=== PATIENT | male | born 1945 | race Caucasian/White ===

== ENCOUNTER 2022-12-29 11:42 | Outpatient (OUT) | payer MEDICARE, SELFPAY ==
[2022-12-29 12:18] LABS: Estimated Average Glucose 140 mg/dL; Glycohemoglobin A1C 6.5 % (4.5-6.2)
== END 2022-12-29 11:43 ==
LOC: LAB 11:46
PROVIDERS: PCP Family Medicine; Visit Provider Family Medicine
DX: E11.65 Type 2 diabetes mellitus with hyperglycemia (principal)
CPT/HCPCS: 36415; 83036

== ENCOUNTER 2023-06-29 10:31 | Outpatient (OUT) | payer MEDICARE, SELFPAY ==
[2023-06-29 11:16] LABS: Basophils Absolute Auto 0.1 10^3/uL (0.0-0.1); Basophils Percent Auto 1.6 % (0.2-2.0); Eosinophils Absolute Auto 0.1 10^3/uL (0.0-0.7); Eosinophils Percent Auto 2.5 % (0.9-7.0); Hematocrit 47.1 % (42.0-54.0); Hemoglobin 15.1 g/dL (14.0-18.0); Immature Granulocytes Abs Auto 0.01 10^3/uL (0.00-0.03); Immature Granulocytes Pct Auto 0.2 % (0.0-0.5); Lymphocytes Absolute Auto 1.5 10^3/uL (1.2-3.8); Lymphocytes Percent Auto 34.6 % (20.5-60.0); Mean Corpuscular HGB Conc 32.1 g/dL (29.9-35.2); Mean Corpuscular Hemoglobin 30.3 pg (25.9-34.0); Mean Corpuscular Volume 94.6 fL (80.0-94.0); Mean Platelet Volume 8.9 fL (9.5-13.5); Monocytes Absolute Auto 0.5 10^3/uL (0.3-0.8); Monocytes Percent Auto 11.3 % (1.7-12.0); Neutrophils Absolute Auto 2.2 10^3/uL (1.4-6.5); Neutrophils Percent Auto 49.8 % (43.0-75.0); Platelet Count 175 10^3/uL (150-450); Red Blood Count 4.98 10^6/uL (4.70-6.10); Red Cell Distribution Width 14.1 % (11.0-15.0); White Blood Count 4.4 10^3/uL (4.0-11.0)
[2023-06-29 11:31] LABS: Estimated Average Glucose 157 mg/dL; Glycohemoglobin A1C 7.1 % (4.5-6.2)
[2023-06-29 11:31] LABS: Microalbumin Urine Random <1.3 mg/dL (<=30.0)
[2023-06-29 12:04] LABS: Alanine Aminotransferase 29 U/L (16-63); Albumin Globulin Ratio 0.8; Albumin Level 3.6 g/dL (3.4-5.0); Alkaline Phosphatase 79 U/L (46-116); Anion Gap 11.4; Aspartate Amino Transferase 13 U/L (15-37); BUN Creatinine Ratio 16.2; Bilirubin Direct 0.1 mg/dL (0.0-0.2); Bilirubin Total 0.5 mg/dL (0.2-1.0); Calcium 9.3 mg/dL (8.5-10.1); Carbon Dioxide 31.4 mmol/L (21.0-32.0); Chloride 104 mmol/L (98-107); Chol HDL Ratio 3.7; Cholesterol 172 mg/dL (<=200); Estimated GFR (African America 58 (>=60); Estimated GFR (Non-African Ame 48 (>=60); Globulin 4.3 g/dL; Glucose 187 mg/dL (74-106); HDL Cholesterol 47 mg/dL (40-60); Potassium 3.8 mmol/L (3.5-5.1); Sodium 143 mmol/L (136-145); Total Protein 7.9 g/dL (6.4-8.2); Triglycerides 159 mg/dL (<=150); VLDL CHOLESTEROL 31.8 mg/dL
[2023-06-29 12:20] LABS: Prostate Specific Antigen Dx 2.06 ng/mL (<=4.00)
== END 2023-06-29 10:32 | disposition home or self-care (01) ==
PROVIDERS: PCP Family Medicine; Visit Provider Family Medicine
DX: E11.65 Type 2 diabetes mellitus with hyperglycemia (principal); Z79.899 Other long term (current) drug therapy; E78.5 Hyperlipidemia, unspecified; Z12.5 Encounter for screening for malignant neoplasm of prostate
CPT/HCPCS: 36415; 80048; 80061; 80076; 82043; 83036; 84153; 85025

== ENCOUNTER 2023-12-18 10:14 | Outpatient (OUT) | payer MEDICARE, SELFPAY ==
--- OUTSIDE RECORDS SUMMARY | 2023-12-18 10:27 | XMS_ITS | CCD ---
Author Organization [facility] Care Team Providers Care Stacker Attendant Name Role Phone DR DANTE ELDER Admitting Unavailable NADERER, DR DANTE Ogden Attending Unavailable NADERER, DR DANTE Ogden Primary Care Unavailable NADERER, DR DANTE Ogden Consulting Unavailable NADERER, DR DANTE Ogden Admitting Unavailable NADERER, DR DANTE Ogden Attending Unavailable NADERER, DR DANTE Ogden Primary Care Unavailable NADERER, DR DANTE Ogden Consulting Unavailable NADIRENE, DR DANTE Ogden Admitting Unavailable NADEREEthel, DR DANTE Ogden Attending Unavailable NADERER, DR DANTE Ogden Primary Care Unavailable NADERER, DR DANTE Ogden Consulting Unavailable Dante Elder MD Primary Care Provider ERIC DONALDSON Attending Unavailable ERIC DONALDSON Attending Unavailable JAEL, DANTE Attending Unavailable DARREN QUINONES Attending Unavailable NADIRENE, DANTE Attending Unavailable Medications Current Medications Medication Drug Class(es) Dates Sig (Normalized) Sig (Original) atorvastatin 40 mg oral tablet (2 sources) HMG-CoA Reductase Inhibitor Start: 06-24-2023 take 1 tablet by mouth at bedtime atorvastatin (Lipitor) 40 MG tablet Indications: Dyslipidemia (CMS/HCC) Take 1 tablet (40 mg) by mouth at bedtime 90 tablet 3 06/24/2023 Active betamethasone 0.5 mg/ml / clotrimazole 10 mg/ml topical cream (2 sources) Azole Antifungal, Corticosteroid Start: 08-20-2023 End: 09-19-2023 clotrimazole-betam ethasone (Lotrisone) cream Indications: Tinea pedis, unspecified laterality Apply 1 application topically in the morning and 1 application before bedtime. 45 g 1 08/20/2023 09/19/2023 Active dapagliflozin 10 mg oral tablet (2 sources) Sodium-Glucose Cotransporter 2 Inhibitor take 10 mg by mouth in the morning dapagliflozin (Farxiga) 10 MG Take 10 mg by mouth in the morning. 0 Active metFORMIN hydrochloride 1000 mg oral tablet (2 sources) Biguanide Start: 03-24-2023 take 1 tablet by mouth in the morning metFORMIN (Glucophage) 1000 MG tablet Take 1,000 mg by mouth in the morning and 1,000 mg in the evening. Take with meals. 0 03/24/2023 Active SITagliptin 100 mg oral tablet (2 sources) Dipeptidyl Peptidase 4 Inhibitor take 1 tablet by mouth in the morning SITagliptin (Januvia) 100 MG tablet Take 100 mg by mouth in the morning. 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; Translations: [Other secondary cataract, right eye] Onset: 06-24-2023 06-24-2023 Chronic Diabetes mellitus with complications (8 sources) Type 2 diabetes mellitus with hyperglycemia; Translations: [Secondary diabetes mellitus] Onset: 06-24-2022 Chronic Diabetes mellitus without complication (2 sources) Type 2 diabetes mellitus without complication; Translations: [Type 2 diabetes mellitus without complications] Onset: 06-24-2023 06-24-2023 Chronic Disorders of lipid metabolism (3 sources) Hyperlipidemia, unspecified; Translations: [Dyslipidemia] Onset: 06-28-2022 06-24-2023 Chronic Inflammation; infection of eye (except that caused by tuberculosis or sexually transmitteddisease) (2 sources) Blepharitis of upper and lower eyelids of bilateral eyes; Translations: [Unspecified blepharitis right eye, upper and lower eyelids] Onset: 06-24-2023 06-24-2023 Episodic Mycoses (4 sources) Tinea pedis; Translations: [Tinea pedis] 08-20-2023 Episodic Other aftercare (1 source) Other exterminator termite (current) drug therapy; Translations: [OTH CONSUMER BANKER CURRENT DRUG THERAPY] Onset: 06-28-2022 Episodic Other aftercare (2 sources) Patient encounter status; Translations: [Other fci (current) drug therapy] Onset: 06-24-2023 06-24-2023 Episodic Other connective tissue disease (2 sources) Pain of toes of bilateral feet; Translations: [Pain in right toe(s)] 02-08-2024 Episodic Other eye disorders (2 sources) Dry eyes; Translations: [Dry eye syndrome of bilateral lacrimal glands] Onset: 06-24-2023 06-24-2023 Episodic Other screening for suspected conditions (not mental disorders or infectious disease) (3 sources) Encounter for screening for malignant neoplasm of prostate; Translations: [Patient encounter status] Onset: 06-28-2022 06-24-2023 Episodic Peripheral and visceral atherosclerosis (6 sources) Peripheral vascular disease, unspecified; Translations: [Intermittent claudication] Onset: 07-02-2022 Chronic Results Test Name Value Interpretation Reference Range Facil ity CBC AUTO DIFFon 06-24-2022 BASO # 0.1 103/ul Normal 0.0-0.1 [facility] Comment on above: Performed By: #### C BC #### [facility] [address] [place] [address] Dr. Sadaf Andino Basophils/100 WBC (Bld) 0.8 % Normal 0.2-2.0 [facility] Comment on above: Performed By: #### C BC #### [facility] [address] [place] [address] Dr. Sadaf Andino EO # 0.2 103/ul Normal 0.0-0.7 [facility] Comment on above: Performed By: #### C BC #### [facility] [address] [place] [address] Dr. Sadaf Andino Eosinophils/100 WBC (Bld) 2.8 % Normal 0.9-7.0 [facility] Comment on above: Performed By: #### C BC #### [facility] [address] [place] [address] Dr. Sadaf Andino Erythrocyte distribution width (RBC) [Ratio] 13.4 % Normal 11.0-15.0 [facility] Comment on above: Performed By: #### C BC #### [facility] [address] [place] [address] Dr. Sadaf Andino Hematocrit (Bld) [Volume fraction] 43.8 % Normal 42.0-54.0 [facility] Comment on above: Performed By: #### C BC #### [facility] [address] [place] [address] Dr. Sadaf Andino Hemoglobin (Bld) [Mass/Vol] 14.6 g/dL Normal 14.0-18.0 [facility] Comment on above: Performed By: #### C BC #### [facility] [address] [place] [address] Dr. Sadaf Andino IG # 0.02 10e3/ul Normal 0.00-0.03 [facility] Comment on above: Performed By: #### C BC #### [facility] [address] [place] [address] Dr. Sadaf Andino IG % 0.3 % Normal 0.0-0.5 [facility] Comment on above: Performed By: #### C BC #### [facility] [address] [place] [address] Dr. Sadaf Andino LYMPH # 2.2 103/ul Normal 1.2-3.8 [facility] Comment on above: Performed By: #### C BC #### [facility] [address] [place] [address] Dr. Sadaf Andino Lymphocytes/100 WBC (Bld) 34.4 % Normal 20.5-60.0 [facility] Comment on above: Performed By: #### C BC #### [facility] [address] [place] [address] Dr. Sadaf Andino MANUAL DIFF REQ NO Normal [facility] Comment on above: Performed By: #### C BC #### [facility] [address] [place] [address] Dr. Sadaf Andino MCH (RBC) [Entitic mass] 30.5 pg Normal 25.9-34.0 [facility] Comment on above: Performed By: #### C BC #### [facility] [address] [place] [address] Dr. Sadaf Andino MCHC (RBC) [Mass/Vol] 33.3 g/dL Normal 29.9-35.2 [facility] Comment on above: Performed By: #### C BC #### [facility] [address] [place] [address] Dr. Sadaf Andino MCV (RBC) [Entitic vol] 91.6 fL Normal 80.0-94.0 [facility] Comment on above: Performed By: #### C BC #### [facility] [address] [place] [address] Dr. Sadaf Andino MONO # 0.4 103/ul Normal 0.3-0.8 [facility] Comment on above: Performed By: #### C BC #### [facility] [address] [place] [address] Dr. Sadaf Andino Monocytes/100 WBC (Bld) 6.5 % Normal 1.7-12.0 [facility] Comment on above: Performed By: #### C BC #### [facility] [address] [place] [address] Dr. Sadaf Andino NEUT # 3.5 103/ul Normal 1.4-6.5 [facility] Comment on above: Performed By: #### C BC #### [facility] [address] [place] [address] Dr. Sadaf Andino Neutrophils/100 WBC (Bld) 55.2 % Normal 43.0-75.0 [facility] Comment on above: Performed By: #### C BC #### [facility] [address] [place] [address] Dr. Sadaf Andino Platelet mean volume (Bld) [Entitic vol] 8.6 fL Critically low 9.5-13.5 [facility] Comment on above: Performed By: #### C BC #### [facility] [address] [place] [address] Dr. Sadaf Andino PLT 191 103/ul Normal 150-450 [facility] Comment on above: Performed By: #### C BC #### [facility] [address] [place] [address] Dr. Sadaf Andino RBC 4.78 106/ul Normal 4.70-6.10 [facility] Comment on above: Performed By: #### C BC #### [facility] [address] [place] [address] Dr. Sadaf Andino WBC 6.3 103/ul Normal 4.0-11.0 [facility] Comment on above: Performed By: #### C BC #### [facility] [address] [address] [address] aSdaf Andino GLYCOHEMOGLOBIN A1Con 2021 ADA RECOMMENDATION SEE BELOW Normal [facility] Comment on above: Result Comment: ADA RECOMMENDED LIMIT 4.0 - 6.0 ADA THERAPEUTIC TARGET < 7.0 ACTION SUGGESTED > 7.0 Performed By: #### A 1C #### [facility] [address] [address] [address] Sadaf Andino Glucose [Mass/Vol] 166 mg/dL Normal [facility] Comment on above: Performed By: #### A 1C #### [facility] [address] [address] [address] Sadaf Andino HbA1c (Bld) [Mass fraction] 7.4 % Critically high 4.5-6.2 [facility] Comment on above: Performed By: #### A 1C #### [facility] [address] [address] [address] Sadaf Andino LIPID PROFILEon 06-24-2022 CHOL-HDL RATIO NORM SEE BELOW Normal [facility] Comment on above: Result Comment: 3.3 - 4.4 LOW RISK 4.4 - 7.1 AVERAGE RISK 7.1 - 11.0 MODERATE RISK >11.0 HIGH RISK Performed By: #### L IPID, LIVER, BMP #### [facility] [address] [address] [address] Sadaf Andino Cholesterol [Mass/Vol] 119 mg/dL Normal <=200 [facility] Comment on above: Performed By: #### L IPID, LIVER, BMP #### [facility] [address] [address] [address] Sadaf Andino Cholesterol in HDL [Mass/Vol] 43 mg/dL Normal 40-60 [facility] Comment on above: Performed By: #### L IPID, LIVER, BMP #### [facility] [address] [address] [address] Sadaf Andino Cholesterol in LDL [Mass/Vol] 52.4 mg/dL Normal [facility] Comment on above: Performed By: #### L IPID, LIVER, BMP #### [facility] [address] [address] [address] Sadaf Andino Cholesterol.total/Cho lesterol in HDL [Mass ratio] 2.8 {ratio} Normal [facility] Comment on above: Performed By: #### L IPID, LIVER, BMP #### [facility] [address] [address] [address] Sadaf Andino HDL NORMAL > or = 60 mg/dl - LOW CARDIOVASCULAR RISK <40 mg/dl - HIGH CARDIOVASCULAR RISK Normal [facility] Comment on above: Performed By: #### L IPID, LIVER, BMP #### [facility] [address] [address] [address] Sadaf Andino LDL CALC NORMAL SEE BELOW Normal [facility] Comment on above: Result Comment: <100 mg/dl OPTIMAL 100 - 129 mg/dl NEAR OR ABOVE OPTIMAL 130 - 159 mg/dl BORDERLINE HIGH 160 - 189 mg/dl HIGH >190 mg/dl VERY HIGH Performed By: #### L IPID, LIVER, BMP #### [facility] [address] [address] [address] Sadaf Andino Triglyceride [Mass/Vol] 118 mg/dL Normal <=150 [facility] Comment on above: Performed By: #### L IPID, LIVER, BMP #### [facility] [address] [address] [address] Sadaf Andino VLDL CALC 23.6 mg/dL Normal [facility] Comment on above: Performed By: #### L IPID, LIVER, BMP #### [facility] [address] [address] [address] Sadaf Andino LIVER PROFILEon 06-24-2022 Albumin [Mass/Vol] 3.7 g/dL Normal 3.4-5.0 [facility] Comment on above: Performed By: #### L IPID, LIVER, BMP #### [facility] [address] [address] [address] Sadaf Andino Albumin/Globulin [Mass ratio] 0.9 {ratio} Normal [facility] Comment on above: Performed By: #### L IPID, LIVER, BMP #### [facility] [address] [address] [address] Sadaf Andino ALP [Catalytic activity/Vol] 74 U/L Normal 46-116 [facility] Comment on above: Performed By: #### L IPID, LIVER, BMP #### [facility] [address] [address] [address] Sadaf Andino ALT [Catalytic activity/Vol] 19 U/L Normal 16-63 [facility] Comment on above: Performed By: #### L IPID, LIVER, BMP #### [facility] [address] [address] [address] Sadaf Andino AST [Catalytic activity/Vol] 17 U/L Normal 15-37 [facility] Comment on above: Performed By: #### L IPID, LIVER, BMP #### [facility] [address] [address] [address] Sadaf Andino BILI, CONJUGATED 0.1 mg/dL Normal 0.0-0.2 [facility] Comment on above: Performed By: #### L IPID, LIVER, BMP #### [facility] [address] [address] [address] Sadaf Andino Bilirubin [Mass/Vol] 0.4 mg/dL Normal 0.2-1.0 [facility] Comment on above: Performed By: #### L IPID, LIVER, BMP #### [facility] [address] [address] [address] Sadaf Andino Globulin (S) [Mass/Vol] 4.1 g/dL Normal [facility] Comment on above: Performed By: #### L IPID, LIVER, BMP #### [facility] [address] [address] [address] Sadaf Andino Protein [Mass/Vol] 7.8 g/dL Normal 6.4-8.2 [facility] Comment on above: Performed By: #### L IPID, LIVER, BMP #### [facility] [address] [address] [address] Sadaf Andino MICROALBUMIN, RAND URon 12- mALB <1.3 Normal <=30.0 [facility] Comment on above: Performed By: #### M ALBR #### [facility] [address] [place] [address] Dr. Sadaf Andino PROF CHEM 8 (BAS METB)on Anion gap [Moles/Vol] 10.7 mmol/L Normal [facility] Comment on above: Performed By: #### L IPID, LIVER, BMP #### [facility] [address] [place] [address] Dr. Sadaf Andino Calcium [Mass/Vol] 9.3 mg/dL Normal 8.5-10.1 [facility] Comment on above: Performed By: #### L IPID, LIVER, BMP #### [facility] [address] [place] [address] Dr. Sadaf Andino Chloride [Moles/Vol] 104 mmol/L Normal 98-107 [facility] Comment on above: Performed By: #### L IPID, LIVER, BMP #### [facility] [address] [place] [address] Dr. Sadaf Andino CO2 [Moles/Vol] 33.3 mmol/L Critically high 21.0-32.0 [facility] Comment on above: Performed By: #### L IPID, LIVER, BMP #### [facility] [address] [place] [address] Dr. Sadaf Andino Creatinine [Mass/Vol] 1.20 mg/dL Normal 0.70-1.30 [facility] Comment on above: Performed By: #### L IPID, LIVER, BMP #### [facility] [address] [place] [address] Dr. Sadaf Andino EGFR-AF NICARAGUAN >60 Normal >=60 [facility] Comment on above: Performed By: #### L IPID, LIVER, BMP #### [facility] [address] [place] [address] Dr. Sadaf Andino EGFR-NON AF NICARAGUAN 59 mL/min/1.73m2 Critically low >=60 [facility] Comment on above: Performed By: #### L IPID, LIVER, BMP #### [facility] [address] [address] [address] Sadaf Andino Glucose [Mass/Vol] 137 mg/dL Critically high 74-106 T [facility] Comment on above: Performed By: #### L IPID, LIVER, BMP #### [facility] [address] [address] [address] Sadaf Andino Potassium [Moles/Vol] 4.0 mmol/L Normal 3.5-5.1 [facility] Comment on above: Performed By: #### L IPID, LIVER, BMP #### [facility] [address] [place] [address] Dr. Sadaf Andino Sodium [Moles/Vol] 144 mmol/L Normal 136-145 [facility] Comment on above: Performed By: #### L IPID, LIVER, BMP #### [facility] [address] [place] [address] Dr. Sadaf Andino Urea nitrogen [Mass/Vol] 17.0 mg/dL Normal 7.0-18.0 [facility] Comment on above: Performed By: #### L IPID, LIVER, BMP #### [facility] [address] [place] [address] Dr. Sadaf Andino Urea nitrogen/Creatinine [Mass ratio] 14.2 mg/mg Normal [facility] Comment on above: Performed By: #### L IPID, LIVER, BMP #### [facility] [address] [place] [address] Dr. Sadaf Andino GLYCOHEMOGLOBIN A1Con 2021 ADA RECOMMENDATION SEE BELOW Normal [facility] Comment on above: Result Comment: ADA RECOMMENDED LIMIT 4.0 - 6.0 ADA THERAPEUTIC TARGET < 7.0 ACTION SUGGESTED > 7.0 Performed By: #### A 1C #### [facility] [address] [place] [address] Dr. Sadaf Andino Glucose [Mass/Vol] 151 mg/dL Normal [facility] Comment on above: Performed By: #### A 1C #### [facility] [address] [place] [address] Dr. Sadaf Andino HbA1c (Bld) [Mass fraction] 6.9 % Critically high 4.5-6.2 [facility] Comment on above: Performed By: #### A 1C #### [facility] [id number] Sadaf Andino Vital Signs Date Time Vital Sign Value Performing Clinician Faci lity 08-20-2023 10:46-0500 Body height 182.9 cm Eric Donaldson DPM Work Phone: [facility] 08-20-2023 10:46-0500 Body mass index (BMI) [Ratio] 29.16 kg/m2 Eric Donaldson DPM Work Phone: [facility] 08-20-2023 10:46-0500 Body weight 97.52 kg Eric Donaldson DPM Work Phone: [facility] 08-20-2023 10:46-0500 Diastolic blood pressure 82 mm[Hg] Eric Donaldson DPM Work Phone: [facility] 08-20-2023 10:46-0500 Heart rate 88 /min Eric Donaldson DPM Work Phone: [facility] 08-20-2023 10:46-0500 Systolic blood pressure 133 mm[Hg] Eric Donaldson DPM Work Phone: [facility] Encounters Encounter Date Encounter Type Care Provider Facility Start: 12-15-2023 End: 12-15-2023 ambulatory DANTE ELDER Not Available Start: 10-29-2023 End: 10-29-2023 ambulatory ERIC DONALDSON Not Available Start: 08-20-2023 End: 08-20-2023 ambulatory ERIC DONALDSON Not Available Start: 08-20-2023 End: 08-20-2023 Office outpatient new 30 minutes Eric Donaldson DPM Work Phone: [facility] Comment on above: Tinea pedis, unspeci fied laterality (Primary Dx); Onychomycosis; Toe pain, bilateral; Diabetes mellitus due to underlying condition with diabetic polyneuropathy, unspecified whether fci insulin use ([facility]) Start: 06-24-2023 End: 06-24-2023 ambulatory DARREN QUINONES Not Available Start: 06-24-2023 End: 06-24-2023 ambulatory DANTE ELDER Not Available Start: 07-02-2022 End: 07-03-[address] DANTE ELDER Facility:[facility] Start: 06-24-2022 End: 06-25-[address] DANTE ELDER Facility:[facility] Start: 12-24-2021 End: 12-25-[address] DANTE ELDER Facility:[facility] Procedures Date Procedure Procedure Detail Performing Clinician Start: 06-24-[address] DANTE MEZA Comment on above: Performed By: #### P [facility] #### [facility] [address] [place] [address] Dr. Sadaf Andino Plan of Treatment Date Care Activity Detail Author Start: 06-24-2025 Glaucoma screening Diabetes: R etinopathy Screening [facility] Start: 06-27-2024 End: 06-27-2024 Patient encounter procedure 06/27/2024 10:15 AM EST Office Visit [facility] [address] [place] [phone] Darren Quinones DO [address] [place] [address] [facility] Start: 12-15-2023 End: 12-15-2023 Patient encounter procedure 12/15/2023 9:00 AM EDT Office Visit [facility] [address] [place] [id number] Dante Elder MD [address] [place] [phone] [facility] Start: 10-29-2023 End: 10-29-2023 Patient encounter procedure 10/29/2023 11:20 AM EDT Office Visit [facility] [address] [place] [id number] Eric Donaldson, CHRISTOPHER [address] [address] [facility] Start: 1964 Urine screening for protein Diabetes: Urine Protein Screening [facility] Start: 1945 Hemoglobin A1c measurement Diabetes: Hemoglobin A1C [facility] Payers Date Payer Category Payer Unknown AARP AARP [id number] 2023-Present [address] [place] [address] [id number] 2023 Unknown [id number] 2009 Medicare MEDICARE MEDICAR E PART B [id number] 2009-Present [address] [address] [place] [address] Medicare [id number] 1959 Medicare [id number] 1959 Unknown [id number] 1944 Unknown [id number] 1944 Unknown [id number] 1944 Unknown [id number] 1944 Unknown [id number] 1944 Unknown [id number] 1944 Unknown [id number] 1944 Unknown [id number] 1944 Unknown [id number] Social History Date Type Detail Facility Start: 06-24-2023 Tobacco smoking stat [facility] Ex-smoker [facility] End: 07-13-1999 History of tobacco use Current smoker [facility] End: 07-13-1999 History of tobacco use Cigarette Smoker [facility] Start: 06-24-2023 End: 08-20-2023 Cigarettes smoked current (pack per day) - Reported 1 [facility] Start: 06-24-2023 Tobacco use and exposure Smoke less tobacco non-user [facility] Start: 08-20-2023 Alcohol intake Lifetime non-d shelby (finding) [facility] Start: 08-20-2023 Tobacco use panel [facility] Start: 1945 Sex Assigned At Not on file [facility] History of Present illness Narrative 08-20-2023 Eric Donaldson, DPM - 08/20/2023 10:50 AM EST Note Date & Type Note Facility 08-20-2023 History of Presen t illness Narrative Patient: Heladio Rodriguez : 1945 PCP: Dante Elder MD SUBJECTIVE This is a 78 y.o. male that presents today with a CC of elongated, thick nails. Pt states nails have been elongated and thick for many years and cause pain with ambulation in shoegear. Pt has tried previous treatment with minimal relief. Pt presents today for nail care and treatment. Patient is DM2 with peripheral neuropathy Pt also presents today of complaints of itching to feet and toes. They state they have tried treatments of none with no relief. Allergies: No Known Allergies Past Medical History: Past Medical History: Diagnosis Date Claudication (CMS/[facility]) Dyslipidemia (CMS/[facility]) Overweight Type 2 diabetes mellitus with hyperglycemia, without long-term current use of insulin ([facility]) Medications: Current Outpatient Medications: atorvastatin (Lipitor) 40 MG tablet, Take 1 tablet (40 mg) by mouth at bedtime, Disp: 90 tablet, Rfl: 3 dapagliflozin (Farxiga) 10 MG, Take 10 mg by mouth in the morning., Disp: , Rfl: metFORMIN (Glucophage) 1000 MG tablet, Take 1,000 mg by mouth in the morning and 1,000 mg in the evening. Take with meals., Disp: , Rfl: SITagliptin (Januvia) 100 MG tablet, Take 100 mg by mouth in the morning., Disp: , Rfl: Social History: Social History Socioeconomic History Marital status: Spouse name: Not on file Number of children: Not on file Years of education: Not on file Highest education level: Not on file Occupational History Not on file Tobacco Use Smoking status: Former Packs/day: 1.00 Years: 30.00 Additional pack years: 0.00 Total pack years: 30.00 Types: Cigarettes Quit date: 1999 Years since quittin.1 Smokeless tobacco: Never Vaping Use Vaping Use: Unknown Substance and Sexual Activity Alcohol use: Never Drug use: Never Sexual activity: Defer Other Topics Concern Not on file Social History Narrative Not on file Social Determinants of Health Financial Resource Strain: Not on file Food Insecurity: Not on file Transportation Needs: Not on file Physical Activity: Not on file Stress: Not on file Social Connections: Not on file Intimate Partner Violence: Not on file Housing Stability: Not on file ROS: General: denies fever, chills, fatigue, malaise Gastrointestinal: denies abdominal pain, ulcers, or changes in appetite or bowel habits Musculoskeletal: Positive history of generalized arthritis, denies loss of strength, pain to hip, knees, back Cardiovascular: denies CP, palpitations, irregular rhythms OBJECTIVE LE EXAM: DERM: Elongated thick yellow crumbly nails digits 1 through 10. Negative hair growth with thin shiny atrophic skin bilaterally. +1 pitting edema to bilateral ankles with notable maceration to web spaces bilaterally VASC: Positive DP and negative PT pedal pulses NEURO: 5.07 [place] Tony monofilament test diminished to digits and forefoot bilaterally 125Hz tuning fork diminished to 1st MPJ bilaterally ORTHO: Positive pain on palpation to nails 1 through 10 ASSESSMENT 1. Tinea pedis, unspecified laterality 2. Onychomycosis 3. Toe pain, bilateral 4. Diabetes mellitus due to underlying condition with diabetic polyneuropathy, unspecified whether exterminator termite insulin use ([facility]) PLAN Discussed proper foot care with patient today. Debride nails in length and thickness digits 1 through 10 Patient educated today on proper diabetic foot care including monitoring feet daily for any signs of infection openings in the skin or irregularities to both feet. Patient had a diabetic neurological exam today to both their feet and discussed proper shoe gear. Patient education concerning tinea infection. Discussed use of antifungal cream and foot powders as well as good foot hygiene and prevention measures. Patient was given a prescription today for antifungal. Eric Donaldson DPM documented in this encounter [facility] Evaluation note Note Date & Type Note Facility Evaluation note Diagnosis Tinea pedis, unspecified laterality- Primary Onychomycosis Dermatophytosis of nail Toe pain, bilateral Diabetes mellitus due to underlying condition with diabetic polyneuropathy, unspecified whether exterminator termite insulin use ([facility]) documented in this encounter [facility] Summary Purpose Family History No Family History Records FoundNo Family History Records Found Advance Directives No Advanced Directives Records FoundNo Advanced Directives Records Found Additional Source Comments (unrecognized sect ion and content) No Status Records FoundNo Status Records Found INFORMATION SOURCE (unrecogn ized section and content) DATE CREATED AUTHOR 07/10/2022 [facility] DATE CREATED AUTHOR AUTHOR'S ORGANIZ ATION 12/16/2023 [facility] EPIC Reason for Visit (unrecogniz ed section and content) Reason Comments DM Foot Care Dm Nails and foot ex am Care Teams (unrecognized sec tion and content) 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 This clinical summary was aggregated from multiple sources. Caution should be exercised in using it in the provision of clinical care. This summary normalizes information from multiple sources, and as a consequence, information in this document may materially change the coding, format and clinical context of patient data. In addition, data may be omitted in some cases. CLINICAL DECISIONS SHOULD BE BASED ON THE PRIMARY CLINICAL RECORDS. [employer] provides no warranty or guarantee of the accuracy or completeness of information in this document.
[2023-12-18 12:42] LABS: Estimated Average Glucose 160 mg/dL; Glycohemoglobin A1C 7.2 % (4.5-6.2)
== END 2023-12-18 10:15 | disposition home or self-care (01) ==
LOC: LAB 10:20
PROVIDERS: PCP Family Medicine; Visit Provider Family Medicine
DX: E11.65 Type 2 diabetes mellitus with hyperglycemia (principal)
CPT/HCPCS: 36415; 83036

== ENCOUNTER 2024-07-01 08:24 | Outpatient (OUT) | payer MEDICARE, SELFPAY ==
--- OUTSIDE RECORDS SUMMARY | 2024-07-01 08:31 | XMS_ITS | CCD ---
Author Organization [facility] Care Team Providers Care Director Of Outreach Name Role Phone JAEL, DR DANTE Ogden Admitting Unavailable NADERER, DR [...] Unavailable NADERER, DR DANTE Ogden Consulting Unavailable Kindrar Dante ACEVEDO Primary Care Provider [phone] Dante Elder MD Primary Care Provider [phone] ERIC DONALDSON Attending Unavailable ERIC DONALDSON Attending Unavailable ERMELINDAEREEthel, DANTE Attending Unavailable JAEL, DANTE Attending Unavailable ERIC DONALDSON Attending Unavailable ERIC DONALDSON Attending Unavailable ZAHLERDARREN Attending Unavailable BROWN, ERIC Ogden Attending Unavailable ERMELINDAEREEthel, DANTE Attending Unavailable Medications Current Medications Medication Drug Class(es) Dates Sig (Normalized) Sig (Original) atorvastatin 40 mg oral tablet (11 sources) HMG-CoA Reductase Inhibitor Start: 12-15-2023 take 1 tablet by mouth at bedtime atorvastatin (Lipitor) 40 MG tablet Indications: Dyslipidemia (CMS/HCC) Take 1 tablet (40 mg) by mouth at bedtime 90 tablet 3 12/15/2023 Active Start: 06-24-2023 take 1 tablet by dar th at bedtime atorvastatin (Lipitor) 40 MG tablet Indications: Dyslipidemia (CMS/HCC) Take 1 tablet (40 mg) by mouth at bedtime 90 tablet 3 06/24/2023 Active betamethasone 0.5 mg/ml / clotrimazole 10 mg/ml topical cream (2 sources) Azole Antifungal, Corticosteroid Start: 08-20-2023 End: 09-19-2023 clotrimazole-betamethasone (Lotrisone) cream Indications: Tinea pedis, unspecified laterality Apply 1 application topically in the morning and 1 application before bedtime. 45 g 1 08/20/2023 09/19/2023 Active dapagliflozin 10 mg oral tablet (11 sources) Sodium-Glucose Cotransporter 2 Inhibitor Start: 12-15-2023 take 1 tablet by mouth once daily dapagliflozin (Farxiga) 10 MG Indications: Type 2 diabetes mellitus with hyperglycemia, without long-term current use of insulin (CMS/HCC) Take 1 tablet (10 mg) by mouth Daily 90 tablet 3 12/15/2023 Active take 10 mg by mouth in the morni ng dapagliflozin (Farxiga) 10 MG Take 10 mg by mouth in the morning. 0 Active metFORMIN hydrochloride 1000 mg oral tablet (11 sources) Biguanide Start: 12-15-2023 take 1 tablet by mouth in the morning metFORMIN (Glucophage) 1000 MG tablet Indications: Type 2 diabetes mellitus with hyperglycemia, without long-term current use of insulin (CMS/HCC) Take 1 tablet (1,000 mg) by mouth in the morning and 1 tablet (1,000 mg) in the evening. Take with meals. 180 tablet 3 12/15/2023 Active Start: 03-24-2023 take 1 tablet by dar th in the morning metFORMIN (Glucophage) 1000 MG tablet Take 1,000 mg by mouth in the morning and 1,000 mg in the evening. Take with meals. 0 03/24/2023 Active SITagliptin 100 mg oral tablet (11 sources) Dipeptidyl Peptidase 4 Inhibitor Start: 12-15-2023 take 1 tablet by mouth once daily SITagliptin (Januvia) 100 MG tablet Indications: Type 2 diabetes mellitus with hyperglycemia, without long-term current use of insulin (CMS/HCC) Take 1 tablet (100 mg) by mouth Daily 90 tablet 3 12/15/2023 Active take 1 tablet by mouth in the mo rn SITagliptin (Januvia) 100 MG tablet Take 100 mg by mouth in the morning. 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; Translations: [Other secondary cataract, right eye] Onset: 06-24-2023 06-24-2023 Chronic Diabetes mellitus with complications (20 sources) Type 2 diabetes mellitus with hyperglycemia; Translations: [Secondary diabetes mellitus] Onset: 06-24-2022 Chronic Disorders of lipid metabolism (14 sources) Hyperlipidemia, unspecified; Translations: [Dyslipidemia] Onset: 06-28-2022 06-24-2023 Chronic Mycoses (8 sources) Tinea pedis; Translations: [Tinea pedis] 08-20-2023 Episodic Other aftercare (1 source) Other long-term (current) drug therapy; Translations: [OTH ASSISTED CURRENT DRUG THERAPY] Onset: 06-28-2022 Episodic Other aftercare (8 sources) Long-term current use of drug therapy; Translations: [Other long-term (current) drug therapy] Onset: 06-24-2023 06-24-2023 Episodic Other connective tissue disease (4 sources) Pain of toes of bilateral feet; Translations: [Pain in right toe(s)] 08-20-2023 Episodic Other screening for suspected conditions (not mental disorders or infectious disease) (14 sources) Encounter for screening for malignant neoplasm of prostate; Translations: [Patient encounter status] Onset: 06-28-2022 06-24-2023 Episodic Past or Other Problems Problem Classification Problem Date Documented Da te Episodic/Chronic Diabetes mellitus without complication (11 sources) Type 2 diabetes mellitus without complication; Translations: [Type 2 diabetes mellitus without complications] Onset: 06-24-2023 Resolved: 12-15-2023 06-24-2023 Chronic Inflammation; infection of eye (except that caused by tuberculosis or sexually transmitteddisease) (11 sources) Blepharitis of upper and lower eyelids of bilateral eyes; Translations: [Unspecified blepharitis right eye, upper and lower eyelids] Onset: 06-24-2023 06-24-2023 Episodic Other aftercare (5 sources) Patient encounter status; Translations: [Other termite control servicer (current) drug therapy] Onset: 06-24-2023 06-24-2023 Episodic Other eye disorders (11 sources) Dry eyes; Translations: [Dry eye syndrome of bilateral lacrimal glands] Onset: 06-24-2023 06-24-2023 Episodic Peripheral and visceral atherosclerosis (15 sources) Peripheral vascular disease, unspecified; Translations: [Intermittent claudication] Onset: 07-02-2022 Resolved: 12-15-2023 Chronic Results Test Name Value Interpretation Reference Range Facil ity CBC AUTO DIFFon 06-24-2022 BASO # 0.1 103/ul Normal 0.0-0.1 [facility] Comment on above: Performed By: #### C BC #### [facility] [address] [address] [address] Sadaf Andino Basophils/100 WBC (Bld) 0.8 % Normal 0.2-2.0 [facility] Comment on above: Performed By: #### C BC #### [facility] [address] [address] [address] Sadaf Andino EO # 0.2 103/ul Normal 0.0-0.7 [facility] Comment on above: Performed By: #### C BC #### [facility] [address] [place] [address] Dr. Sadaf Andino Eosinophils/100 WBC (Bld) 2.8 % Normal 0.9-7.0 [facility] Comment on above: Performed By: #### C BC #### [facility] [address] [place] [address] Dr. Sadaf Andino Erythrocyte distribution width (RBC) [Ratio] 13.4 % Normal 11.0-15.0 [facility] Comment on above: Performed By: #### C BC #### [facility] [address] [place] [address] Dr. Sadaf Andino Hematocrit (Bld) [Volume fraction] 43.8 % Normal 42.0-54.0 [facility] Comment on above: Performed By: #### C BC #### [facility] [address] [place] [address] Dr. Sadaf Andino Hemoglobin (Bld) [Mass/Vol] 14.6 g/dL Normal 14.0-18.0 [facility] Comment on above: Performed By: #### C BC #### [facility] [address] [place] [address] Dr. Sadaf Andino IG # 0.02 10e3/ul Normal 0.00-0.03 [facility] Comment on above: Performed By: #### C BC #### [facility] [address] [place] [address] Dr. Sadaf Andino IG % 0.3 % Normal 0.0-0.5 [facility] Comment on above: Performed By: #### C BC #### [facility] [address] [place] [address] Dr. Sadaf Andino LYMPH # 2.2 103/ul Normal 1.2-3.8 [facility] Comment on above: Performed By: #### C BC #### [facility] [address] [place] [address] Dr. Sadaf Andino Lymphocytes/100 WBC (Bld) 34.4 % Normal 20.5-60.0 [facility] Comment on above: Performed By: #### C BC #### [facility] [address] [place] [address] Dr. Sadaf Andino MANUAL DIFF REQ NO Normal [facility] Comment on above: Performed By: #### C BC #### [facility] [address] [place] [address] Dr. Sadaf Andino MCH (RBC) [Entitic mass] 30.5 pg Normal 25.9-34.0 [facility] Comment on above: Performed By: #### C BC #### [facility] [address] [place] [address] Dr. Sadaf Andino MCHC (RBC) [Mass/Vol] 33.3 g/dL Normal 29.9-35.2 [facility] Comment on above: Performed By: #### C BC #### [facility] [address] [place] [address] Dr. Sadaf Andino MCV (RBC) [Entitic vol] 91.6 fL Normal 80.0-94.0 [facility] Comment on above: Performed By: #### C BC #### [facility] [address] [place] [address] Dr. Sadaf Andino MONO # 0.4 103/ul Normal 0.3-0.8 [facility] Comment on above: Performed By: #### C BC #### [facility] [address] [place] [address] Dr. Sadaf Andino Monocytes/100 WBC (Bld) 6.5 % Normal 1.7-12.0 [facility] Comment on above: Performed By: #### C BC #### [facility] [address] [place] [address] Dr. Sadaf Andino NEUT # 3.5 103/ul Normal 1.4-6.5 [facility] Comment on above: Performed By: #### C BC #### [facility] [address] [place] [address] Dr. Sadaf Andino Neutrophils/100 WBC (Bld) 55.2 % Normal 43.0-75.0 [facility] Comment on above: Performed By: #### C BC #### [facility] [address] [place] [address] Dr. Sadaf Andino Platelet mean volume (Bld) [Entitic vol] 8.6 fL Critically low 9.5-13.5 [facility] Comment on above: Performed By: #### C BC #### [facility] [address] [place] [address] Dr. Sadaf Andino PLT 191 103/ul Normal 150-450 [facility] Comment on above: Performed By: #### C BC #### [facility] [address] [place] [address] Dr. Sadaf Andino RBC 4.78 106/ul Normal 4.70-6.10 [facility] Comment on above: Performed By: #### C BC #### [facility] [address] [place] [address] Dr. Sadaf Andino WBC 6.3 103/ul Normal 4.0-11.0 [facility] Comment on above: Performed By: #### C BC #### [facility] [address] [place] [address] Dr. Sadaf Andino GLYCOHEMOGLOBIN A1Con 2021 ADA RECOMMENDATION SEE BELOW Normal [facility] Comment on above: Result Comment: ADA RECOMMENDED LIMIT 4.0 - 6.0 ADA THERAPEUTIC TARGET < 7.0 ACTION SUGGESTED > 7.0 Performed By: #### A 1C #### [facility] [address] [address] [address] Sadaf Andino Glucose [Mass/Vol] 166 mg/dL Normal [facility] Comment on above: Performed By: #### A 1C #### [facility] [address] [address] [address] Sadaf Andion HbA1c (Bld) [Mass fraction] 7.4 % Critically high 4.5-6.2 [facility] Comment on above: Performed By: #### A 1C #### [facility] [address] [place] [address] Dr. Sadaf Andino LIPID PROFILEon 06-24-2022 CHOL-HDL RATIO NORM SEE BELOW Normal [facility] Comment on above: Result Comment: 3.3 - 4.4 LOW RISK 4.4 - 7.1 AVERAGE RISK 7.1 - 11.0 MODERATE RISK >11.0 HIGH RISK Performed By: #### L IPID, LIVER, BMP #### [facility] [address] [place] [address] Dr. Sadaf Andino Cholesterol [Mass/Vol] 119 mg/dL Normal <=200 [facility] Comment on above: Performed By: #### L IPID, LIVER, BMP #### [facility] [address] [place] [address] Dr. Saadf Andino Cholesterol in HDL [Mass/Vol] 43 mg/dL Normal 40-60 [facility] Comment on above: Performed By: #### L IPID, LIVER, BMP #### [facility] [address] [place] [address] Dr. Sadaf Andino Cholesterol in LDL [Mass/Vol] 52.4 mg/dL Normal [facility] Comment on above: Performed By: #### L IPID, LIVER, BMP #### [facility] [address] [address] [address] Sadaf Andino Cholesterol.total/Cho lesterol in HDL [Mass ratio] 2.8 {ratio} Normal [facility] Comment on above: Performed By: #### L IPID, LIVER, BMP #### [facility] [address] [place] [address] Dr. Sadaf Andino HDL NORMAL > or = 60 mg/dl - LOW CARDIOVASCULAR RISK <40 mg/dl - HIGH CARDIOVASCULAR RISK Normal [facility] Comment on above: Performed By: #### L IPID, LIVER, BMP #### [facility] [address] [address] [address] Sadaf Andino LDL CALC NORMAL SEE BELOW Normal [facility] Comment on above: Result Comment: <100 mg/dl OPTIMAL 100 - 129 mg/dl NEAR OR ABOVE OPTIMAL 130 - 159 mg/dl BORDERLINE HIGH 160 - 189 mg/dl HIGH >190 mg/dl VERY HIGH Performed By: #### L IPID, LIVER, BMP #### [facility] [address] [address] [address] Sadaf Andino Triglyceride [Mass/Vol] 118 mg/dL Normal <=150 [facility] Comment on above: Performed By: #### L IPID, LIVER, BMP #### [facility] [address] [address] [address] Sadaf Andino VLDL CALC 23.6 mg/dL Normal [facility] Comment on above: Performed By: #### L IPID, LIVER, BMP #### [facility] [address] [address] [address] Sadaf Andino LIVER PROFILEon 06-24-2022 Albumin [Mass/Vol] 3.7 g/dL Normal 3.4-5.0 [facility] Comment on above: Performed By: #### L IPID, LIVER, BMP #### [facility] [address] [address] [address] Sadaf Andino Albumin/Globulin [Mass ratio] 0.9 {ratio} Normal [facility] Comment on above: Performed By: #### L IPID, LIVER, BMP #### [facility] [address] [address] [address] Sadaf Andino ALP [Catalytic activity/Vol] 74 U/L Normal 46-116 [facility] Comment on above: Performed By: #### L IPID, LIVER, BMP #### [facility] [address] [address] [address] Sadaf Andino ALT [Catalytic activity/Vol] 19 U/L Normal 16-63 [facility] Comment on above: Performed By: #### L IPID, LIVER, BMP #### [facility] [address] [place] [address] Dr. Sadaf Andino AST [Catalytic activity/Vol] 17 U/L Normal 15-37 [facility] Comment on above: Performed By: #### L IPID, LIVER, BMP #### [facility] [address] [place] [address] Dr. Sadaf Andino BILI, CONJUGATED 0.1 mg/dL Normal 0.0-0.2 [facility] Comment on above: Performed By: #### L IPID, LIVER, BMP #### [facility] [address] [place] [address] Dr. Sadaf Andino Bilirubin [Mass/Vol] 0.4 mg/dL Normal 0.2-1.0 [facility] Comment on above: Performed By: #### L IPID, LIVER, BMP #### [facility] [address] [place] [address] Dr. Sadaf Andino Globulin (S) [Mass/Vol] 4.1 g/dL Normal [facility] Comment on above: Performed By: #### L IPID, LIVER, BMP #### [facility] [address] [place] [address] Dr. Sadaf Andino Protein [Mass/Vol] 7.8 g/dL Normal 6.4-8.2 [facility] Comment on above: Performed By: #### L IPID, LIVER, BMP #### [facility] [address] [place] [address] Dr. Sadaf Andino MICROALBUMIN, RAND URon 06-12 mALB <1.3 Normal <=30.0 [facility] Comment on above: Performed By: #### M ALBR #### [facility] [address] [place] [address] Dr. Sadaf Andino PROF CHEM 8 (BAS METB)on Anion gap [Moles/Vol] 10.7 mmol/L Normal [facility] Comment on above: Performed By: #### L IPID, LIVER, BMP #### [facility] [address] [address] [address] Sadaf Andino Calcium [Mass/Vol] 9.3 mg/dL Normal 8.5-10.1 [facility] Comment on above: Performed By: #### L IPID, LIVER, BMP #### [facility] [address] [place] [address] Dr. Sadaf Andino Chloride [Moles/Vol] 104 mmol/L Normal 98-107 [facility] Comment on above: Performed By: #### L IPID, LIVER, BMP #### [facility] [address] [address] [address] Sadaf Andino CO2 [Moles/Vol] 33.3 mmol/L Critically high 21.0-32.0 [facility] Comment on above: Performed By: #### L IPID, LIVER, BMP #### [facility] [address] [place] [address] Dr. Sadaf Andino Creatinine [Mass/Vol] 1.20 mg/dL Normal 0.70-1.30 [facility] Comment on above: Performed By: #### L IPID, LIVER, BMP #### [facility] [address] [place] [address] Dr. Sadaf Andino EGFR-AF EMIRATI >60 Normal >=60 [facility] Comment on above: Performed By: #### L IPID, LIVER, BMP #### [facility] [address] [place] [address] Dr. Sadaf Andino EGFR-NON AF EMIRATI 59 mL/min/1.73m2 Critically low >=60 [facility] Comment on above: Performed By: #### L IPID, LIVER, BMP #### [facility] [address] [address] [address] Sadaf Andino Glucose [Mass/Vol] 137 mg/dL Critically high 74-106 [facility] Comment on above: Performed By: #### L IPID, LIVER, BMP #### [facility] [address] [address] [address] Sadaf Andino Potassium [Moles/Vol] 4.0 mmol/L Normal 3.5-5.1 [facility] Comment on above: Performed By: #### L IPID, LIVER, BMP #### [facility] [address] [place] [address] Dr. Sadaf Andino Sodium [Moles/Vol] 144 mmol/L Normal 136-145 [facility] Comment on above: Performed By: #### L IPID, LIVER, BMP #### [facility] [address] [place] [address] Dr. Sadaf Andino Urea nitrogen [Mass/Vol] 17.0 mg/dL Normal 7.0-18.0 [facility] Comment on above: Performed By: #### L IPID, LIVER, BMP #### [facility] [address] [place] [address] Dr. Sadaf Andino Urea nitrogen/Creatinine [Mass ratio] 14.2 mg/mg Normal [facility] Comment on above: Performed By: #### L IPID, LIVER, BMP #### [facility] [address] [place] [address] Dr. Sadaf Andino GLYCOHEMOGLOBIN A1Con 2021 ADA RECOMMENDATION SEE BELOW Normal [facility] Comment on above: Result Comment: ADA RECOMMENDED LIMIT 4.0 - 6.0 ADA THERAPEUTIC TARGET < 7.0 ACTION SUGGESTED > 7.0 Performed By: #### A 1C #### [facility] [address] [place] [address] Dr. Sadaf Andino Glucose [Mass/Vol] 151 mg/dL Normal [facility] Comment on above: Performed By: #### A 1C #### [facility] [address] [place] [address] Dr. Sadaf Andino HbA1c (Bld) [Mass fraction] 6.9 % Critically high 4.5-6.2 [facility] Comment on above: Performed By: #### A 1C #### [facility] [address] [place] [address] Dr. Sadaf Andino Vital Signs Date Time Vital Sign Value Performing Clinician Faci lity 06-13-2024 09:14-0500 Body height 182.9 cm Dante Elder MD Work Phone: [facility] 06-13-2024 09:14-0500 Body mass index (BMI) [Ratio] 28.89 kg/m2 Dante Elder MD Work Phone: [facility] 06-13-2024 09:14-0500 Body temperature 96.21 [degF] Dante Elder MD Work Phone: [facility] 06-13-2024 09:14-0500 Body weight 96.62 kg Dante Elder MD Work Phone: [facility] 06-13-2024 09:14-0500 Diastolic blood pressure 58 mm[Hg] Dante Elder MD Work Phone: [facility] 06-13-2024 09:14-0500 Heart rate 73 /min Dante Elder MD Work Phone: [facility] 06-13-2024 09:14-0500 Respiratory rate 20 /min Dante Elder MD Work Phone: [facility] 06-13-2024 09:14-0500 SaO2% (BldA) [Mass fraction] 97 % Dante Elder MD Work Phone: [facility] 06-13-2024 09:14-0500 Systolic blood pressure 130 mm[Hg] Dante Elder MD Work Phone: [facility] 06-02-2024 10:55-0500 Body height 182.9 cm Eric Donaldson DPM Work Phone: [facility] 06-02-2024 10:55-0500 Body mass index (BMI) [Ratio] 27.67 kg/m2 Eric Donaldson DPM Work Phone: [facility] 06-02-2024 10:55-0500 Body weight 92.53 kg Eric Donaldson DPM Work Phone: [facility] 06-02-2024 10:55-0500 Respiratory rate 18 /min Eric Donaldson DPM Work Phone: [facility] 03-24-2024 10:23-0400 Body height 182.9 cm Eric Donaldson DPM Work Phone: [facility] 03-24-2024 10:23-0400 Body mass index (BMI) [Ratio] 27.67 kg/m2 Eric Donaldson DPM Work Phone: [facility] 03-24-2024 10:23-0400 Body weight 92.53 kg Eric Brown DPM Work Phone: [facility] 03-24-2024 10:23-0400 Diastolic blood pressure 80 mm[Hg] Eric Donaldson DPM Work Phone: [facility] 03-24-2024 10:23-0400 Heart rate 85 /min Eric Donaldson DPM Work Phone: [facility] 03-24-2024 10:23-0400 Systolic blood pressure 129 mm[Hg] Eric Donaldson DPM Work Phone: [facility] 08-20-2023 10:46-0500 Body height 182.9 cm Eric Donaldson DPM Work Phone: [facility] 08-20-2023 10:46-0500 Body mass index (BMI) [Ratio] 29.16 kg/m2 Eric Donaldson DPM Work Phone: [facility] 08-20-2023 10:46-0500 Body weight 97.52 kg Eric Brown DPM Work Phone: [facility] 08-20-2023 10:46-0500 Diastolic blood pressure 82 mm[Hg] Eric Donaldson DPM Work Phone: [facility] 08-20-2023 10:46-0500 Heart rate 88 /min Eric Donaldson DPM Work Phone: [facility] 08-20-2023 10:46-0500 Systolic blood pressure 133 mm[Hg] Eric Donaldson DPM Work Phone: [facility] Healthcare Encounters Encounter Date Encounter Type Care Provider Facility Start: 06-13-2024 End: 06-13-2024 Bamboo flowsheet Dante Elder MD Work Phone: [facility] Start: 06-13-2024 End: 06-13-2024 Bamboo neydaheet Dante Elder MD Work Phone: [facility] Start: 06-13-2024 End: 06-13-2024 Office outpatient visit 15 minutes Dante Elder MD Work Phone: [facility] Comment on above: Type 2 diabetes amanda itus with hyperglycemia, without long-term current use of insulin (CMS/HCC) (Primary Dx); Dyslipidemia (CMS/HCC); Encounter for long-term (current) use of medications; Screening PSA (prostate specific antigen) Start: 06-13-2024 End: 06-13-2024 ambulatory DANTE ELDER Not Available Start: 06-02-2024 End: 06-02-2024 Bamboo flowsheet Eric Donaldson DPM Work Phone: [facility] Start: 06-02-2024 End: 06-02-2024 Bamboo flowsheet Eric Donaldson DPM Work Phone: [facility] Start: 06-02-2024 End: 06-02-2024 ambulatory ERIC DONALDSON Not Available Start: 06-02-2024 End: 06-02-2024 Patient encounter procedure Eric Donaldson DPM Work Phone: [facility] Comment on above: 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, unspecified whether long-term insulin use (CMS/HCC) (Primary Dx); Pain due to onychomycosis of toenails of both feet Start: 03-24-2024 End: 03-24-2024 Bamboo flowsheet Eric Donaldson DPM Work Phone: [facility] Start: 03-24-2024 End: 03-24-2024 Bamboo flowsheet Eric Donaldson DPM Work Phone: [facility] Start: 03-24-2024 End: 03-24-2024 Patient encounter procedure Eric Donaldson DPM Work Phone: [facility] Comment on above: 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, unspecified whether termite control servicer insulin use ([facility]) (Primary Dx); Onychomycosis; Toe pain, bilateral Start: 03-24-2024 End: 03-24-2024 ambulatory ERIC DONALDSON Not Available Start: 01-07-2024 End: 01-07-2024 ambulatory ERIC DONALDSON Not Available Start: 12-15-2023 End: 12-15-2023 ambulatory DANTE ELDER Not Available Start: 10-29-2023 End: 10-29-2023 ambulatory ERIC DONALDSON Not Available Start: 08-20-2023 End: 08-20-2023 ambulatory ERIC DONALDSON Not Available Start: 08-20-2023 End: 08-20-2023 Office outpatient new 30 minutes Eric Donaldson DPM Work Phone: [facility] Comment on above: Tinea pedis, unspeci fied laterality (Primary Dx); Onychomycosis; Toe pain, bilateral; Diabetes mellitus due to underlying condition with diabetic polyneuropathy, unspecified whether long-term insulin use ([facility]) Start: 06-24-2023 End: 06-24-2023 ambulatory DARREN SALAS Not Available Start: 06-24-2023 End: 06-24-2023 ambulatory DANTE ELDER Not Available Start: 07-02-2022 End: 07-03-[address] DANTE ELDER Facility:[facility]1 Start: 06-24-2022 End: 06-25-[address] DANTE ELDER Facility:[facility] Start: 12-24-2021 End: 12-25-[address] DANTE ELDER Facility:[facility] Procedures Date Procedure Procedure Detail Performing Clinician Start: 06-24-[address] DANTE MEZA Comment on above: Performed By: #### P [facility] #### [facility] [address] [place] [address] Dr. Sadaf Andino Plan of Treatment Date Care Activity Detail Author Start: 06-24-2025 Glaucoma screening Diabetes: R etinopathy Screening [facility] Start: 12-13-2024 End: 12-13-2024 Patient encounter procedure 12/13/2024 10:00 AM EDT Office Visit [facility] [address] [place] [address] Dante Elder MD [address] [place] [address] [facility] Start: 08-11-2024 End: 08-11-2024 Patient encounter procedure 08/11/2024 11:30 AM EST Office Visit [facility] [address] [facility] [address] [place] [phone] Eric Donaldson DPM [address] [facility] [address] [place] [address] [facility] Start: 06-29-2024 Urine screening for protein Diabetes: Urine Protein Screening [facility] Start: 06-27-2024 End: 06-27-2024 Patient encounter procedure 06/27/2024 10:15 AM EST Office Visit [facility] [address] [place] [phone] Darren Salas DO [address] [place] [address] [facility] Start: 06-18-2024 Hemoglobin A1c measurement Diabetes: Hemoglobin A1C [facility] Start: 06-13-2024 End: 06-13-2025 Albumin, urine, random Albumin, urine, random Lab Routine Type 2 diabetes mellitus with hyperglycemia, without long-term current use of insulin ([facility]) Expected: 06/13/2024 (Approximate), Expires: 06/13/2025 [facility] Work Phone: Comment on above: Expected: 06/13/2024 (Approximate), Expires: 06/13/2025 Start: 06-13-2024 End: 06-13-2025 Basic metabolic 1998 panel - Serum or Plasma Basic metabolic panel Lab Routine Encounter for long-term (current) use of medications Expected: 06/13/2024 (Approximate), Expires: 06/13/2025 [facility] Comment on above: Expected: 06/13/2024 (Approximate), Expires: 06/13/2025 Start: 06-13-2024 End: 06-13-2025 CBC W Auto Differential panel - Blood CBC and differential Lab Routine Encounter for long-term (current) use of medications Expected: 06/13/2024 (Approximate), Expires: 06/13/2025 [facility] Comment on above: Expected: 06/13/2024 (Approximate), Expires: 06/13/2025 Start: 06-13-2024 End: 06-13-2025 Hemoglobin A1c/Hemoglobin.total in Blood Hemoglobin A1c Lab Routine Type 2 diabetes mellitus with hyperglycemia, without long-term current use of insulin (CMS/HCC) Expected: 06/13/2024 (Approximate), Expires: 06/13/2025 [facility] Comment on above: Expected: 06/13/2024 (Approximate), Expires: 06/13/2025 Start: 06-13-2024 End: 06-13-2025 Hepatic function 2000 panel - Serum or Plasma Hepatic function panel Lab Routine Encounter for long-term (current) use of medications Expected: 06/13/2024 (Approximate), Expires: 06/13/2025 [facility] Comment on above: Expected: 06/13/2024 (Approximate), Expires: 06/13/2025 Start: 06-13-2024 End: 06-13-2025 Lipid 1996 panel - Serum or Plasma Lipid panel Lab Routine Dyslipidemia (CMS/HCC) Expected: 06/13/2024 (Approximate), Expires: 06/13/2025 [facility] Comment on above: Expected: 06/13/2024 (Approximate), Expires: 06/13/2025 Start: 06-13-2024 End: 06-13-2025 Prostate specific Ag [Mass/volume] in Serum or Plasma PSA Lab Routine Screening PSA (prostate specific antigen) Expected: 06/13/2024 (Approximate), Expires: 06/13/2025 [facility] Comment on above: Expected: 06/13/2024 (Approximate), Expires: 06/13/2025 Start: 06-13-2024 End: 06-13-2024 Patient encounter procedure [facility] Comment on above: Arrived Start: 06-02-2024 End: 06-02-2024 Patient encounter procedure 06/02/2024 10:40 AM EST Office Visit [facility] [address] [address] Eric Doanldson DPM [address] [address] [facility] Start: 03-24-2024 End: 03-24-2024 Patient encounter procedure 03/24/2024 10:30 AM EDT Office Visit [facility] [address] [phone] Eric Donaldson DPM [address] [address] Diabetes mellitus due to underlying condition with diabetic polyneuropathy, unspecified whether termite control servicer insulin use ([facility]) (Primary Dx); Onychomycosis; Toe pain, bilateral [facility] Comment on above: 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, unspecified whether long-term insulin use ([facility]) (Primary Dx); Onychomycosis; Toe pain, bilateral Start: 03-13-2024 Influenza vaccination Influenza Vacc ine (#1) [facility] Start: 12-15-2023 End: 12-15-2023 Patient encounter procedure 12/15/2023 9:00 AM EDT Office Visit [facility] [address] [place] [phone] Dante Elder MD [address] [place] [phone] [facility] Start: 10-29-2023 End: 10-29-2023 Patient encounter procedure 10/29/2023 11:20 AM EDT Office Visit [facility] [address] [facility] [address] [place] [address] Eric Donaldson, DPM [address] [facility] [address] [place] [address] [facility] Start: 1964 Urine screening for protein Diabetes: Urine Protein Screening [facility] Start: 1945 Hemoglobin A1c measurement Diabetes: Hemoglobin A1C [facility] Immunizations Immunization Date Immunization Notes Care Provider Fa cility 04-27-2024 influenza virus vacc ine, unspecified formulation Eric Donaldson DPM Work Phone: [facility] 06-01-2023 influenza virus vacc ine, unspecified formulation Eric Donaldson DPM Work Phone: [facility] Healthcare Payers Date Payer Category Payer Private Health Insurance [employer] Ar mber [id number] 2023 Unknown [id number] 2023 Unknown [id number] 2009 Medicare [id number] 1959 Medicare [id number] 1959 Unknown [id number] 1944 Unknown [id number] .593 1944 Unknown [id number] [id number] .593 1944 Unknown [id number] [id number] .593 1944 Unknown [id number] [id number] .1259 1944 Unknown [id number] [id number] .1259 1944 Unknown [id number] [id number] .1259 1944 Unknown [id number] [id number] .1259 1944 Unknown [id number] [id number] .1259 1944 Unknown [id number] .1259 1944 Unknown [id number] [id number] .1259 1944 Unknown [id number] .1259 1944 Unknown [id number] .1259 Social History Date Type Detail Facility Start: 06-24-2023 End: 01-07-2024 Tobacco smoking status NYIS Ex-smoker [facility] Start: 07-13-1969 End: 07-13-1999 History of tobacco use Current smoker [facility] Start: 07-13-1969 End: 07-13-1999 History of tobacco use Cigarette Smoker [facility] Start: 06-24-2023 End: 03-24-2024 Cigarettes smoked current (pack per day) - Reported 1 [facility] Start: 06-24-2023 End: 01-07-2024 Tobacco use and exposure Smokeless tobacco non-user [facility] Start: 08-20-2023 End: 03-24-2024 Alcohol intake Lifetime non-drinker (finding) [facility] Start: 08-20-2023 End: 03-24-2024 Tobacco use panel [facility] Start: 1945 Sex Assigned At Not on file [facility] History of Present illness Narrative 06-13-2024 Dante Elder MD - 06/13/2024 9:35 AM ESTDante Elder MD - 06/13/2024 9:15 AM EST Note Date & Type Note Facility 06-13-2024 History of Presen t illness Narrative Associated Problem(s): Type 2 diabetes mellitus with hyperglycemia, without long-term current use of insulin ([facility]) Reports BS stable and due for A1C. Stick to ADA diet and limit carbs. Images from the original note were not included. Subjective Patient ID: Heladio Galeana is a 79 y.o. male who presents for Follow-up (6m ). Follow up diabetes and weight. BS variable and 120-190. Tries to eat well and stick to ADA diet. Denies signs of elevated BS such as polyuria, polyphagia or polydipsia. Due for labs. Weight up 9 pounds since last visit. 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 Tries to watch diet and eat healthy. Increased fruits and vegetables. Smaller portions and limits snacking. Tries to limit total daily calories. Review of Systems Constitutional: Negative for fatigue. Respiratory: Negative for cough, shortness of breath and wheezing. Cardiovascular: Negative for chest pain and palpitations. Gastrointestinal: Negative for abdominal pain, diarrhea, nausea and vomiting. Genitourinary: Negative for dysuria. Objective Physical Exam Constitutional: General: He is not in acute distress. Appearance: Normal appearance. HENT: Head: Normocephalic. Right Ear: Tympanic membrane and ear canal normal. Left Ear: Tympanic membrane and ear canal normal. Eyes: Extraocular Movements: Extraocular movements intact. Pupils: Pupils are equal, round, and reactive to light. Cardiovascular: Rate and Rhythm: Normal rate and regular rhythm. Heart sounds: No murmur heard. No friction rub. No gallop. Pulmonary: Breath sounds: Normal breath sounds. No wheezing, rhonchi or rales. Abdominal: General: Bowel sounds are normal. There is no distension. Palpations: Abdomen is soft. Tenderness: There is no abdominal tenderness. There is no guarding or rebound. Musculoskeletal: Left lower leg: No edema. Neurological: Mental Status: He is alert. Assessment/Plan Problem List Items Addressed This Visit Dyslipidemia (CMS/HCC) Relevant Orders Lipid panel Type 2 diabetes mellitus with hyperglycemia, without long-term current use of insulin (CMS/[facility]) - Primary Reports BS stable and due for A1C. Stick to ADA diet and limit carbs. Relevant Orders Albumin, urine, random Hemoglobin A1c Screening PSA (prostate specific antigen) Relevant Orders PSA Encounter for long-term (current) use of medications Relevant Orders Basic metabolic panel CBC and differential Hepatic function panel documented in this encounter [facility] History of Present illness Narrative 06-02-2024 Eric Donaldson DPM - 06/02/2024 10:40 AM EST Note Date & Type Note Facility 06-02-2024 History of Presen t illness Narrative Patient: Heladio Galeana : 1945 PCP: Dante Elder MD SUBJECTIVE This is a 79 y.o. male that presents today with a CC of elongated, thick nails. Pt states nails have been elongated and thick for many years and cause pain with ambulation in shoegear. Pt has tried previous treatment with minimal relief. Pt presents today for nail care and treatment. Patient is DM2 with peripheral neuropathy Allergies: No Known Allergies Past Medical History: Past Medical History: Diagnosis Date Claudication (CMS/HCC) Dyslipidemia (CMS/HCC) Overweight Type 2 diabetes mellitus with hyperglycemia, without long-term current use of insulin (CMS/[facility]) Medications: Current Outpatient Medications: atorvastatin (Lipitor) 40 MG tablet, Take 1 tablet (40 mg) by mouth at bedtime, Disp: 90 tablet, Rfl: 3 dapagliflozin (Farxiga) 10 MG, Take 1 tablet (10 mg) by mouth Daily, Disp: 90 tablet, Rfl: 3 metFORMIN (Glucophage) 1000 MG tablet, Take 1 tablet (1,000 mg) by mouth in the morning and 1 tablet (1,000 mg) in the evening. Take with meals., Disp: 180 tablet, Rfl: 3 SITagliptin (Januvia) 100 MG tablet, Take 1 tablet (100 mg) by mouth Daily, Disp: 90 tablet, Rfl: 3 Social History: Social History Socioeconomic History Marital status: Spouse name: Not on file Number of children: Not on file Years of education: Not on file Highest education level: Not on file Occupational History Not on file Tobacco Use Smoking status: Former Current packs/day: 0.00 Average packs/day: 1 pack/day for 30.0 years (30.0 ttl pk-yrs) Types: Cigarettes Start date: 1969 Quit date: 1999 Years since quittin.8 Smokeless tobacco: Never Vaping Use Vaping status: Unknown Substance and Sexual Activity Alcohol use: Never Drug use: Never Sexual activity: Defer Other Topics Concern Not on file Social History Narrative Not on file Social Drivers of Health Financial Resource Strain: Not on file Food Insecurity: Not on file Transportation Needs: Not on file Physical Activity: Not on file Stress: Not on file Social Connections: Not on file Intimate Partner Violence: Not on file Housing Stability: Not on file ROS: General: denies fever, chills, fatigue, malaise OBJECTIVE LE EXAM: DERM: Elongated thick yellow crumbly nails digits 1 through 10. Negative hair growth with thin shiny atrophic skin bilaterally. +1 pitting edema to bilateral ankles with negative maceration to web spaces bilaterally VASC: Positive DP and negative PT pedal pulses NEURO: 5.07 [place] Tony monofilament test diminished to digits and forefoot bilaterally 125Hz tuning fork diminished to 1st MPJ bilaterally ORTHO: Positive pain on palpation to nails 1 through 10 ASSESSMENT 1. Diabetes mellitus due to underlying condition with diabetic polyneuropathy, unspecified whether long-term insulin use ([facility]) 2. Pain due to onychomycosis of toenails of both feet PLAN Discussed proper foot care with patient today. Debride nails in length and thickness digits 1 through 10 Patient educated today on proper diabetic foot care including monitoring feet daily for any signs of infection openings in the skin or irregularities to both feet. Patient had a diabetic neurological exam today to both their feet and discussed proper shoe gear. Eric Donaldson DPM documented in this encounter [facility] History of Present illness Narrative 03-24-2024 Eric Donaldson DPM - 03/24/2024 10:30 AM EDT Note Date & Type Note Facility 03-24-2024 History of Presen t illness Narrative Patient: Heladio Galeana : 1945 PCP: Dante Elder MD SUBJECTIVE This is a 78 y.o. male that presents today with a CC of elongated, thick nails. Pt states nails have been elongated and thick for many years and cause pain with ambulation in shoegear. Pt has tried previous treatment with minimal relief. Pt presents today for nail care and treatment. Patient is DM2 with peripheral neuropathy Allergies: No Known Allergies Past Medical History: Past Medical History: Diagnosis Date Claudication ([facility]) Dyslipidemia ([facility]) Overweight Type 2 diabetes mellitus with hyperglycemia, without long-term current use of insulin ([facility]) Medications: Current Outpatient Medications: atorvastatin (Lipitor) 40 MG tablet, Take 1 tablet (40 mg) by mouth at bedtime, Disp: 90 tablet, Rfl: 3 dapagliflozin (Farxiga) 10 MG, Take 1 tablet (10 mg) by mouth Daily, Disp: 90 tablet, Rfl: 3 metFORMIN (Glucophage) 1000 MG tablet, Take 1 tablet (1,000 mg) by mouth in the morning and 1 tablet (1,000 mg) in the evening. Take with meals., Disp: 180 tablet, Rfl: 3 SITagliptin (Januvia) 100 MG tablet, Take 1 tablet (100 mg) by mouth Daily, Disp: 90 tablet, Rfl: 3 Social History: Social History Socioeconomic History Marital status: Spouse name: Not on file Number of children: Not on file Years of education: Not on file Highest education level: Not on file Occupational History Not on file Tobacco Use Smoking status: Former Current packs/day: 0.00 Average packs/day: 1 pack/day for 30.0 years (30.0 ttl pk-yrs) Types: Cigarettes Start date: 1969 Quit date: 2000 Years since quittin.7 Smokeless tobacco: Never Vaping Use Vaping status: Unknown Substance and Sexual Activity Alcohol use: [...] ROS: General: denies fever, chills, fatigue, malaise OBJECTIVE LE EXAM: DERM: Elongated thick yellow crumbly nails digits 1 through 10. Negative hair growth with thin shiny atrophic skin bilaterally. +1 pitting edema to bilateral ankles with negative maceration to web spaces bilaterally VASC: Positive DP and negative PT pedal pulses NEURO: 5.07 [place] Tony monofilament test diminished to digits and forefoot bilaterally 125Hz tuning fork diminished to 1st MPJ bilaterally ORTHO: Positive pain on palpation to nails 1 through 10 ASSESSMENT 1. Diabetes mellitus due to underlying condition with diabetic polyneuropathy, unspecified whether long-term insulin use ([facility]) 2. Onychomycosis 3. Toe pain, bilateral PLAN Discussed proper foot care with patient today. Debride nails in length and thickness digits 1 through 10 Patient educated today on proper diabetic foot care including monitoring feet daily for any signs of infection openings in the skin or irregularities to both feet. Patient had a diabetic neurological exam today to both their feet and discussed proper shoe gear. Eric Donaldson DPM documented in this encounter [facility] History of Present illness Narrative 08-20-2023 Eric Donaldson DPM - 08/20/2023 10:50 AM EST Note Date & Type Note Facility 08-20-2023 History of Presen t illness Narrative Patient: Heladio Galeana : 1945 PCP: Dante Elder MD SUBJECTIVE [...] History: Past Medical History: Diagnosis Date Claudication ([facility]) Dyslipidemia ([facility]) Overweight Type 2 diabetes mellitus with hyperglycemia, without long-term current use of insulin ([facility]) Medications: Current Outpatient Medications: atorvastatin (Lipitor) 40 [...] Types: Cigarettes Quit date: 1999 Years since quittin. Smokeless tobacco: Never Vaping Use Vaping Use: [...] and negative PT pedal pulses NEURO: 5.07 [place] Tony monofilament test diminished to digits and forefoot bilaterally 125Hz tuning fork diminished to 1st MPJ bilaterally ORTHO: Positive pain on palpation to nails 1 through 10 ASSESSMENT 1. Tinea pedis, unspecified laterality 2. Onychomycosis 3. Toe pain, bilateral 4. Diabetes mellitus due to underlying condition with diabetic polyneuropathy, unspecified whether long-term insulin use ([facility]) PLAN Discussed proper foot care with patient [...] Eric Donaldson DPM documented in this encounter [facility] Evaluation note Note Date & Type Note Facility Evaluation note Diagnosis Tinea pedis, unspecified laterality- Primary Onychomycosis Dermatophytosis of nail Toe pain, bilateral Diabetes mellitus due to underlying condition with diabetic polyneuropathy, unspecified whether long-term insulin use ([facility]) documented in this encounter [facility] Evaluation note Note Date & Type Note Facility Evaluation note Diagnosis Type 2 diabetes mellitus with hyperglycemia, without long-term current use of insulin ([facility])- Primary Screening PSA (prostate specific antigen) Special screening for malignant neoplasm of prostate Encounter for long-term (current) use of medications Encounter for long-term (current) use of other medications Dyslipidemia ([facility]) Other and unspecified hyperlipidemia Type 2 diabetes mellitus with hyperglycemia, without long-term current use of insulin ([facility])- Primary Dyslipidemia (CMS/HCC) Other and unspecified hyperlipidemia Diabetes mellitus due to underlying condition with diabetic polyneuropathy, unspecified whether termite control servicer insulin use ([facility])- Primary Pain due to onychomycosis of toenails of both feet documented in this encounter [facility] Healthcare Evaluation note Note Date & Type Note Facility Evaluation note Diagnosis Type 2 diabetes mellitus with hyperglycemia, without long-term current use of insulin ([facility])- Primary Screening PSA (prostate specific antigen) Special screening for malignant neoplasm of prostate Encounter for long-term (current) use of medications Encounter for long-term (current) use of other medications Dyslipidemia (CMS/HCC) Other and unspecified hyperlipidemia Type 2 diabetes mellitus with hyperglycemia, without long-term current use of insulin (CMS/HCC)- Primary Dyslipidemia (CMS/HCC) Other and unspecified hyperlipidemia Type 2 diabetes mellitus with hyperglycemia, without long-term current use of insulin ([facility])- Primary Dyslipidemia (CMS/HCC) Other and unspecified hyperlipidemia Encounter for long-term (current) use of medications Encounter for long-term (current) use of other medications Screening PSA (prostate specific antigen) Special screening for malignant neoplasm of prostate documented in this encounter [facility] Evaluation note Note Date & Type Note Facility Evaluation note Diagnosis Diabetes mellitus due to underlying condition with diabetic polyneuropathy, unspecified whether long-term insulin use (CMS/[facility])- Primary Onychomycosis Dermatophytosis of nail Toe pain, bilateral documented in this encounter [facility] Summary Purpose Family History No Family History Records FoundNo Family History Records Found Advance Directives No Advanced Directives Records FoundNo Advanced Directives Records Found Additional Source Comments (unrecognized sect ion and content) No Status Records FoundNo Status Records Found INFORMATION SOURCE (unrecogn ized section and content) DATE CREATED AUTHOR 07/10/2022 [facility] DATE CREATED AUTHOR AUTHOR'S ORGANIZ ATION 06/13/2024 [facility] EPIC Reason for Visit (unrecogniz ed section and content) Reason Comments DM Foot Care Dm Nails and foot ex am Reason Comments DM Foot Care Dm nail care Reason Comments Follow-up 6m Reason Comments DM Foot Care Dm Nails Care Teams (unrecognized sec tion and content) Director Of Outreach Relationship Specialty Start Date End Date Dante Elder MD PCP - General Family Medicine 06/23/23 Director Of Outreach Relationship Specialty Start Date End Date Dante Elder MD [address] [place] [address] PCP - General Family Medicine 12/15/23 Director Of Outreach Relationship Specialty Start Date End Date Dante Elder MD [address] [place] [phone] PCP - [facility] 12/15/23 Director Of Outreach Relationship Specialty Start Date End Date Dante Elder MD [address] [place] [address] PCP - [facility] 12/15/23 Director Of Outreach Relationship Specialty Start Date End Date Dante Elder MD [address] [place] [address] PCP - [facility] 12/15/23 Director Of Outreach Relationship Specialty Start Date End Date Dante Elder MD [address] [place] [address] PCP - [facility] 12/15/23 Director Of Outreach Relationship Specialty Start Date End Date Dante Elder MD [address] [place] [address] PCP [facility] 12/15/23 FOR RECORDS PERTAINING TO PATIENTS WHO ARE [...] BE BASED ON THE PRIMARY CLINICAL RECORDS. [facility] [employer] [facility]. provides no warranty or guarantee of the accuracy or completeness of information in this document.
[2024-07-01 08:56] LABS: Basophils Absolute Auto 0.1 10^3/uL (0.0-0.1); Basophils Percent Auto 1.7 % (0.2-2.0); Eosinophils Absolute Auto 0.2 10^3/uL (0.0-0.7); Eosinophils Percent Auto 2.7 % (0.9-7.0); Hematocrit 43.9 % (42.0-54.0); Hemoglobin 14.3 g/dL (14.0-18.0); Immature Granulocytes Abs Auto 0.02 10^3/uL (0.00-0.03); Immature Granulocytes Pct Auto 0.3 % (0.0-0.5); Lymphocytes Absolute Auto 2.2 10^3/uL (1.2-3.8); Lymphocytes Percent Auto 37.5 % (20.5-60.0); Mean Corpuscular HGB Conc 32.6 g/dL (29.9-35.2); Mean Corpuscular Hemoglobin 30.4 pg (25.9-34.0); Mean Corpuscular Volume 93.2 fL (80.0-94.0); Mean Platelet Volume 9.4 fL (9.5-13.5); Monocytes Absolute Auto 0.5 10^3/uL (0.3-0.8); Monocytes Percent Auto 7.8 % (1.7-12.0); Platelet Count 176 10^3/uL (150-450); Red Blood Count 4.71 10^6/uL (4.70-6.10); Red Cell Distribution Width 13.7 % (11.0-15.0); White Blood Count 5.9 10^3/uL (4.0-11.0)
[2024-07-01 09:07] LABS: Estimated Average Glucose 148 mg/dL; Glycohemoglobin A1C 6.8 % (4.5-6.2)
[2024-07-01 09:13] LABS: Microalbumin Urine Random <1.3 mg/dL (<=30.0)
[2024-07-01 09:56] LABS: Alanine Aminotransferase 45 U/L (16-63); Albumin Level 3.5 g/dL (3.4-5.0); Alkaline Phosphatase 81 U/L (46-116); Aspartate Amino Transferase 33 U/L (15-37); BUN Creatinine Ratio 15.2; Bilirubin Direct 0.1 mg/dL (0.0-0.2); Bilirubin Total 0.4 mg/dL (0.2-1.0); Calcium 9.2 mg/dL (8.5-10.1); Chloride 107 mmol/L (98-107); Chol HDL Ratio 2.8; Cholesterol 134 mg/dL (<=200); Estimated GFR (African America 51 (>=60 mL/min/1.73m^2); Estimated GFR (Non-African Ame 42 (>=60 mL/min/1.73m^2); Globulin 3.5 g/dL; Glucose 138 mg/dL (74-106); HDL Cholesterol 48 mg/dL (40-60); Sodium 145 mmol/L (136-145); Triglycerides 166 mg/dL (<=150); VLDL CHOLESTEROL 33.2 mg/dL
[2024-07-01 11:07] LABS: Prostate Specific Antigen Scrn 1.85 ng/mL (<=4.00)
== END 2024-07-01 08:25 | disposition home or self-care (01) ==
LOC: LAB 08:25
PROVIDERS: PCP Family Medicine; Visit Provider Family Medicine
DX: E11.65 Type 2 diabetes mellitus with hyperglycemia (principal); Z79.899 Other long term (current) drug therapy; E78.5 Hyperlipidemia, unspecified; Z12.5 Encounter for screening for malignant neoplasm of prostate
CPT/HCPCS: 36415; 80048; 80061; 80076; 82043; 83036; 85025; G0103

== ENCOUNTER 2024-12-28 13:16 | Outpatient (OUT) | payer MEDICARE, SELFPAY ==
--- OUTSIDE RECORDS SUMMARY | 2024-12-14 11:30 | XMS_ITS | Encounter Summary ---
Author Organization [facility] Address [address] [facility] [place] [address] Care Team Providers Care Audio Visual Coordinator Name Role Phone Dante Calvin MD Primary Care Provider [phone] Dante Calvin MD Unavailable Reason for Visit * Reason Comments Medicare Annual Wellness Visit Subsequen t WELLNESS Encounter Details Date Type Department Care Team (Late st Contact Info) Description 12/14/2024 11:30 AM EDT Office Visit [facility] [address] [place] [phone] Dante Calvin MD [address] [place] [address] Medicare annual wellness visit, subsequent (Primary Dx); Type 2 diabetes mellitus with hyperglycemia, without long-term current use of insulin (HCC); CKD stage 3b, GFR 30-44 ml/min ([facility]); Type 2 diabetes mellitus with diabetic chronic kidney disease (HCC) Social History Tobacco Use Types Packs/Day Years Used Date Smoking Tobacco: Former Cigarettes 1 30 1 970 - 2000 Smokeless Tobacco: Never Alcohol Use Standard Drinks/Week Comments Never 0 (1 standard drink = 0.6 oz pur e alcohol) PHQ-2 Answer Date Recorded Patient Health Questionnaire-2 Score 0 12/14/2024 Sex and Gender Information Value Date Recorded Sex Assigned at Not on file Legal Sex Male 8:35 PM EDT Gender Identity Not on file Sexual Orientation Not on file documented as of this encounter Last Filed Vital Signs Vital Sign Reading Time Taken Comments Blood Pressure 120/68 12/14/2024 11:38 AM EDT Pulse 78 12/14/2024 11:38 AM EDT Temperature 36.3 C (97.3 F) 12/14/2024 11:38 AM EDT Respiratory Rate 20 12/14/2024 11:38 AM EDT Oxygen Saturation 96% 12/14/2024 11:38 AM EDT Inhaled Oxygen Concentration - - Weight 96.2 kg (212 lb) 12/14/2024 11:38 AM EDT Height 182.9 cm (6') 12/14/2024 11:38 AM EDT Body Mass Index 28.75 12/14/2024 11:38 AM EDT documented in this encounter Functional Status * Over the past 2 weeks, how often have you been bothered by any of the following problems? Question Answer Date of Assessment Author Little interest or pleasure in doing things Not at all 12/14/2024 11:00 AM CADENCE BARTH Feeling down, depressed, or hopeless Not at all 10/2024 11:00 AM CADENCE BARTH Patient Health Questionnaire-2 Score 0 10/2024 11:00 AM CADENCE BARTH * Question Answer Date of Assessment Author Trouble falling or staying a sleep, or sleeping too much Not at all 12/14/2024 11:00 AM CDAENCE BARTH Feeling tired or having talon le energy Several days 12/14/2024 11:00 AM CADENCE BARTH Poor appetite or overeating Not at all 12/14/2024 11 :00 AM CADENCE BARTH Feeling bad about yourself - or that you are a failure or have let yourself or your family down Not at all 12/14/2024 11:00 AM CADENCE BARTH Trouble concentrating on thi ngs, such as reading the newspaper or watching television Not at all 12/14/2024 11:00 AM CADENCE BARTH Moving or speaking so slowly that other people could have noticed? Or the opposite - being so fidgety or restless that you have been moving around a lot more than usual. Not at all 12/14/2024 11:00 AM CADENCE BARTH Thoughts that you would be b hedy off or hurting yourself in some way Not at all 12/14/2024 11:00 AM CADENCE BARTH Patient Health Questionnaire -9 Score 1 12/14/2024 11:00 AM CADENCE BARTH documented as of this encounter Progress Notes * Dante Calvin MD - 12/14/2024 12:08 PM EDTAssociated Problem(s): Medicare annual wellness visit, subsequent Reviewed labs. Discussed proper diet and regular aerobic exercise. Need aerobic exercise 5-6 days aweek for 30 minutes at a time. Smaller portions and limit total calories. Tetanus every 10 years. Advised not to smoke. * Dante Calvin MD - 12/14/2024 11:30 AM EDT Images from the original note were not included. Subjective Patient ID: Heladio Galeana is a 79 y.o. male who presents for Medicare Annual Wellness Visit Subsequent (WELLNESS/). Presents for medicare annual wellness visit. Feels well today. 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 Tries to watch diet and eat healthy. Increased fruits and vegetables. Smaller portions and limits snacking. Tries to limit total daily calories. Reviewed labs. Review of Systems Constitutional: Negative for fatigue. [...] There is no guarding or rebound. Musculoskeletal: General: Normal range of motion. Left lower leg: No edema. Neurological: General: No focal deficit present. Mental Status: He is alert. Cranial Nerves: No cranial nerve deficit. Deep Tendon Reflexes: Reflexes normal. Assessment/Plan Problem List Items Addressed This Visit Type 2 diabetes mellitus with hyperglycemia, without long-term current use of insulin ([facility]) Relevant Orders Hemoglobin A1c Medicare annual wellness visit, subsequent - Primary Reviewed labs. Discussed proper diet and regular aerobic exercise. Need aerobic exercise 5-6 days aweek for 30 minutes at a time. Smaller portions and limit total calories. Tetanus every 10 years. Advised not to smoke. documented in this encounter Plan of Treatment Upcoming Encounters Date Type Department Care Team (Late st Contact Info) Description 01/05/2025 9:30 AM EDT Office Visit [facility] [address] [facility] [address] [place] [phone] Eric Donaldson DPM [address] [facility] [address] [place] [address] 06/15/2025 10:45 AM EST Office Visit [facility] [address] [place] [address] Dante Calvin MD [address] [place] [address] 07/03/2025 2:00 PM EST Office Visit [facility] [address] [place] [phone] Jerod Salas DO [address] [place] [address] Scheduled Orders Name Type Priority Associated Diagnoses Orde r Schedule Hemoglobin A1c Lab Routine Type 2 diabetes mellitus with hyperglycemia, without long-term current use of insulin (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, unspecified whether terminal makeup operator insulin use (HCC)- Primary Pain due to onychomycosis of toenails of both feet Tinea pedis, unspecified laterality documented in this encounter Additional Health Concerns Assessment Noted Time PHQ-9 Depression Total Score: 1 12/15/19 11:00 AM EDT documented as of this encounter Care Teams Audio Visual Coordinator Relationship Specialty Start Date End Date Dante Calvin MD [address] [place] [address] PCP - General Family Medicine 12/15/23 Dante Calvin MD [address] [place] [address] PCP - [facility] 08/19/24 documented as of this encounter
--- OUTSIDE RECORDS SUMMARY | 2024-12-28 13:21 | XMS_ITS | Encounter Summary ---
Author Organization [facility] Address [address] [place] [address] Care Team Providers Care Vocational Rehab Consultant Name Role Phone Dante Calvin MD Primary Care Provider [phone] Dante Calvin MD Unavailable Reason for Visit * Reason Comments Med Refill Encounter Details Date Type Department Care Team (Late st Contact Info) Description 12/15/2024 Refill [facility] [address] [place] [address] Dante Calvin MD [address] [place] [address] Type 2 diabetes mellitus with hyperglycemia, without long-term current use of insulin (HCC) Social History Tobacco Use Types Packs/Day [...] on file documented as of this encounter Miscellaneous Notes * Telephone Encounter - CADENCE ROCKWELL - 12/15/2024 8:09 AM EDT MEDICATION SENT TO [place] documented in this encounter Plan of Treatment Upcoming Encounters Date Type Department Care Team (Late st Contact Info) Description 01/05/2025 9:30 AM EDT Office Visit [facility] [address] [place] [address] Eric Donaldson, DPJose [address] [facility] [address] [place] [address] 06/15/2025 10:45 AM EST Office Visit [facility] [address] [place] [address] Dante Calvin MD [address] [place] [address] 07/03/2025 2:00 PM EST Office Visit [facility] [address] [place] [address] Jerod Salas DO [address] [place] [address] documented as of this encounter Visit Diagnoses Diagnosis Type 2 diabetes mellitus with hyperglycemia, without long-term current use of insulin (HCC) Diabetes mellitus due to underlying condition with diabetic polyneuropathy, unspecified whether extermination inspector insulin use (HCC)- Primary Pain due to onychomycosis of toenails of both feet Tinea pedis, unspecified laterality documented in this encounter Additional Health Concerns Assessment Noted Time PHQ-9 Depression Total Score: 1 12/15/19 25 11:00 AM EDT documented as of this encounter Care Teams Vocational Rehab Consultant Relationship Specialty Start Date End Date Dante Calvin MD [address] [place] [address] PCP - General Family Medicine 12/15/23 Datne Calvin MD [address] [place] [address] PCP - [facility] 08/19/24 documented as of this encounter
--- OUTSIDE RECORDS SUMMARY | 2024-12-28 13:21 | XMS_ITS | Encounter Summary ---
Author Organization [facility] Address [address] [place] [address] Care Team Providers Care Middleware Solutions Architect Name Role Phone Dante Calvin MD Primary Care Provider [phone] Dante Calvin MD Unavailable Reason for Visit * Reason Comments Med Refill Encounter Details Date Type Department Care Team (Late st Contact Info) Description 12/22/2024 Refill [facility] [address] [place] [place] [address] Dante Calvin MD [address] [place] [address] Dyslipidemia ; Type 2 diabetes mellitus with hyperglycemia, without [...] * Telephone Encounter - CADENCE ROCKWELL - 12/22/2024 11:32 AM EDT MEDICATION SENT TO [facility] documented in this encounter Plan of Treatment Upcoming Encounters Date Type Department Care Team (Late st Contact Info) Description 01/05/2025 9:30 AM EDT Office Visit [facility] [address] [place] [address] Eric Donaldson, DPM [address] [facility] 5 [place] [address] 06/15/2025 10:45 AM EST Office Visit [facility] [address] [place] [address] Dante Calvin MD [address] [place] [address] 07/03/2025 2:00 PM EST Office Visit [facility] [address] [place] [address] Jerod Salas DO [address] [place] [address] documented as of this encounter Visit Diagnoses Diagnosis Dyslipidemia Other and unspecified hyperlipidemia Type 2 diabetes mellitus with hyperglycemia, without long-term current use of insulin (HCC) Diabetes mellitus due to underlying condition with diabetic polyneuropathy, unspecified whether intermediate insulin use (HCC)- Primary Pain due to onychomycosis of toenails of both feet Tinea pedis, unspecified laterality documented in this encounter Additional Health Concerns Assessment Noted Time PHQ-9 Depression Total Score: 1 12/15/19 25 11:00 AM EDT documented as of this encounter Care Teams Middleware Solutions Architect Relationship Specialty Start Date End Date Dante Calvin MD [address] [place] [address] PCP - General Family Medicine 12/15/23 Dante Calvin MD [address] [place] [address] PCP - [facility] 08/19/24 documented as of this encounter
--- OUTSIDE RECORDS SUMMARY | 2024-12-28 13:21 | XMS_ITS | Encounter Summary ---
Author Organization [facility] Address [address] [facility] [address] Care Team Providers Care Airplane Flight Attendant Name Role Phone Dante Calvin MD Primary Care Provider [phone] Dante Calvin MD Unavailable Encounter Details Date Type Department Care Team (Late st Contact Info) Description 12/14/2024 Bamboo flowsheet [facility] [address] [place] [phone] Dante Calvin MD [address] [place] [address] Social History Tobacco Use Types Packs/Day Years [...] on file documented as of this encounter Functional Status * Over the past 2 weeks, how often have you been bothered by any of the following problems? Question Answer Date of Assessment Author Little interest or pleasure in doing things Not at all 12/14/2024 11:00 AM ROBBIET CADENCE ROCKWELL Feeling down, depressed, or hopeless Not at all 10/2024 11:00 AM CADENCE BARTH Patient Health Questionnaire-2 Score 0 10/2024 11:00 AM EDT CADENCE ROCKWELL * Question Answer Date of Assessment Author Trouble falling or staying a sleep, or sleeping too much Not at all 12/14/2024 11:00 AM ROBBIET CADENCE ROCKWELL Feeling tired or having talon le energy [...] CADENCE BARTH documented as of this encounter Plan of Treatment Upcoming Encounters Date Type Department Care Team (Late st Contact Info) Description 01/05/2025 9:30 AM EDT Office Visit [facility] [address] [facility] [address] [place] [phone] Eric Donaldson DPM [address] [facility] [address] [place] [address] 06/15/2025 10:45 AM EST Office Visit [facility] [address] [place] [place] [address] Dante Calvin MD [address] [place] [place] [address] 07/03/2025 2:00 PM EST Office Visit [facility] [address] [place] [address] Jerod Salas DO [address] [place] [address] documented as of this encounter Visit Diagnoses Not on filedocumented in this encounter Additional Health Concerns Assessment Noted Time PHQ-9 Depression Total Score: 1 12/15/19 25 11:00 AM EDT documented as of this encounter Care Teams Airplane Flight Attendant Relationship Specialty Start Date End Date Dante Calvin MD [address] [place] [phone] PCP - General Family Medicine 12/15/23 Dante Calvin MD [address] [place] [address] PCP - [facility] 08/19/24 documented as of this encounter
--- OUTSIDE RECORDS SUMMARY | 2024-12-28 13:21 | XMS_ITS | Clinical Summary ---
Author Organization [facility] Address [address] [place] [address] Care Team Providers Care Foundation Drill Operator Name Role Phone Dante Calvin MD Primary Care Provider [phone] Dante Calvin MD Unavailable Allergies No known active allergies Medications Januvia 100 MG tabletIndicati ons:Type 2 diabetes mellitus with hyperglycemia, without long-term current use of insulin (HCC) Take 1 tablet by mouth once daily 90 tablet 5 Active Farxiga 10 MGIndications: Type 2 diabetes mellitus with hyperglycemia, without long-term current use of insulin (HCC) Take 1 tablet by mouth once daily 90 tablet 5 Active atorvastatin (Lipitor) 40 MG tabletIndicati ons:Dyslipidem ia TAKE 1 TABLET BY MOUTH AT BEDTIME 90 tablet 5 Active metFORMIN (Glucophage) 1000 MG tabletIndicati ons:Type 2 diabetes mellitus with hyperglycemia, without long-term current use of insulin (HCC) TAKE 1 TABLET BY MOUTH IN THE MORNING AND 1 TABLET IN THE EVENING -- TAKE WITH MEALS 180 tablet 5 Active atorvastatin (Lipitor) 40 MG tabletIndicati ons:Dyslipidem ia Take 1 tablet (40 mg) by mouth at bedtime 90 tablet 3 4 12/23/19 25 Discontinued dapagliflozin (Farxiga) 10 MGIndications: Type 2 diabetes mellitus with hyperglycemia, without long-term current use of insulin (HCC) Take 1 tablet (10 mg) by mouth Daily 90 tablet 3 4 12/16/19 25 Discontinued metFORMIN (Glucophage) 1000 MG tabletIndicati ons:Type 2 diabetes mellitus with hyperglycemia, without long-term current use of insulin (HCC) Take 1 tablet (1,000 mg) by mouth in the morning and 1 tablet (1,000 mg) in the evening. Take with meals. 180 tablet 3 4 12/23/19 25 Discontinued SITagliptin (Januvia) 100 MG tabletIndicati ons:Type 2 diabetes mellitus with hyperglycemia, without long-term current use of insulin (HCC) Take 1 tablet (100 mg) by mouth Daily 90 tablet 3 4 12/16/19 25 Discontinued Active Problems Problem Noted Date Diagnosed Date Medicare annual wellness visit, subsequent 12/14 Assessment & Plan (12/14/2024 12:08 PM EDT): Reviewed labs. Discussed proper diet and regular aerobic exercise. Need aerobic exercise 5-6 days a week for 30 minutes at a time. Smaller portions and limit total calories. Tetanus every 10 years. Advised not to smoke. CKD stage 3b, GFR 30-44 ml/min 12/14/2024 Dyslipidemia 06/24/2023 Type 2 diabetes mellitus wit h hyperglycemia, without long-term current use of insulin 06/24/2023 Assessment & Plan (06/13/2024 9:35 AM EST): Reports BS stable and due for A1C. Stick to ADA diet and limit carbs. Assessment & Plan (12/15/2023 9:38 AM EDT): Reports BS stable and due for A1C. Stick to ADA diet and limit carbs. Assessment & Plan (06/24/2023 9:27 AM EST): Reports BS stable and due for A1C. Stick to ADA diet and limit carbs. Screening PSA (prostate specific antigen) 2022 Encounter for long-term (current) use of medicat ions 06/24/2023 Right posterior capsular opacification Dry eyes 06/24/2023 Resolved Problems Problem Noted Date Diagnosed Date Resolved Date Claudication, intermittent 06/24/2023 0 12/15/2023 Type 2 diabetes mellitus wit hout complication, without long-term current use of insulin 06/24/2023 12/15/2023 Blepharitis of upper and low er eyelids of both eyes 06/24/2023 12/14/2024 Encounters Date Type Department Care Team Description 12/22/2024 Refill [facility] [address] [place] [address] Dante Calvin MD Dyslipidemia ; Type 2 diabetes mellitus with hyperglycemia, without long-term current use of insulin (HCC) 12/15/2024 Refill [facility] [address] [place] [address] Dante Calvin MD Type 2 diabetes mellitus with hyperglycemia, without long-term current use of insulin (HCC) 12/14/2024 11:30 AM EDT Office Visit [facility] [address] [place] [address] Dante Calvin MD Medicare annual wellness visit, subsequent (Primary Dx); Type 2 diabetes mellitus with hyperglycemia, without long-term current use of insulin (HCC); CKD stage 3b, GFR 30-44 ml/min ([facility]); Type 2 diabetes mellitus with diabetic chronic kidney disease (HCC) 12/14/2024 Bamboo flowsheet [facility] [address] [place] [address] Dante Calvin MD 10/27/2024 9:30 AM EDT Office Visit [facility] [address] [place] [address] Eric Donaldson DPM Diabetes mellitus due to underlying condition with diabetic polyneuropathy, unspecified whether retirement insulin use (HCC) (Primary Dx); Pain due to onychomycosis of toenails of both feet; Tinea pedis, unspecified laterality 10/27/2024 Bamboo flowsheet [facility] [address] [place] [address] Eric Donaldson DPM 10/27/2024 Travel from Last 3 Months Family History Medical History Relation Name Comments Hypertension Mother Relation Name Status Comments Father Mother Social History Tobacco Use Types Packs/Day Years Used Date Smoking Tobacco: Former Cigarettes 30 1 970 - 1999 Smokeless Tobacco: Never Tobacco Cessation:Counseling Given: Yes Alcohol Use Standard Drinks/Week Comments Never 0 (1 standard drink = 0.6 oz pur e alcohol) PHQ-2 Answer Date Recorded Patient Health Questionnaire-2 Score 0 12/14/2024 Sex and Gender Information Value Date Recorded Sex Assigned at Not on file Legal Sex Male 8:35 PM EDT Gender Identity Not on file Sexual Orientation Not on file Last Filed Vital Signs Vital Sign Reading [...] Mass Index 28.75 12/14/2024 11:38 AM EDT Plan of Treatment Upcoming Encounters Date Type Department Care Team (Late st Contact Info) Description 01/05/2025 9:30 AM EDT Office Visit [facility] [address] [facility] [address] [place] [address] Eric Donaldson DPM [address] [facility] [address] [place] [address] 06/15/2025 10:45 AM EST Office Visit [facility] [address] [place] [address] Dante Calvin MD [address] [place] [address] 07/03/2025 2:00 PM EST Office Visit [facility] [address] [place] [phone] Jerod Salas DO [address] [place] [address] Health Maintenance Due Date Last Done Comments Diabetes: Hemoglobin A1C 12/30/2024 07/01/2024, 06/0 01/2024 Diabetes: Urine Protein Screening 07/01/2025 024, 06/29/2023 Medicare Annual Wellness (AWV) 12/14/2025 12/14/2024 Diabetes: Retinopathy Screening 07/01/2026 07/01/2024, 07/01/2024, 07/01/2024, Additional history exists Pneumococcal Vaccine: 65+ Years Completed 8, 03/26/2016 Influenza Vaccine Completed 04/27/2024, , 03/10/2022, Additional history exists Insurance MEDICARE [facility] Care Teams Foundation Drill Operator Relationship Specialty Start Date End Date Dante Calvin MD [address] [place] [place] [address] PCP - General Family Medicine 12/15/23 Dante Calvin MD [address] [place] [address] [facility] 08/19/24
[2024-12-28 14:21] LABS: Estimated Average Glucose 171 mg/dL; Glycohemoglobin A1C 7.6 % (4.5-6.2)
== END 2024-12-28 13:17 | disposition home or self-care (01) ==
LOC: LAB 13:18
PROVIDERS: PCP Family Medicine; Visit Provider Family Medicine
DX: E11.65 Type 2 diabetes mellitus with hyperglycemia (principal)
CPT/HCPCS: 36415; 83036

== ENCOUNTER 2025-07-03 08:48 | Outpatient (OUT) | payer MEDICARE, SELFPAY ==
--- OUTSIDE RECORDS SUMMARY | 2025-07-03 08:56 | XMS_ITS | Clinical Summary ---
Author Organization [facility] Healthcare Address [address] [address] Care Team Providers Care Transfer Coordinator Name Role Phone Dante Calvin MD Primary Care Provider [phone] Dante Calvin MD Unavailable Allergies No known active allergies Medications MedicationSigDispense QuantityRefillsLast FilledStart DateEnd DateStatus Januvia 100 MG tablet Indications:Type 2 diabetes mellitus with hyperglycemia, without long-term current use of insulin (HCC)Take 1 tablet by mouth once daily 90 tablet 5Active Farxiga 10 MG Indications:Type 2 diabetes mellitus with hyperglycemia, without long-term current use of insulin (HCC)Take 1 tablet by mouth once daily 90 tablet 5Active atorvastatin (Lipitor) 40 MG tablet Indications:DyslipidemiaTAKE 1 TABLET BY MOUTH AT BEDTIME 90 tablet 5Active metFORMIN (Glucophage) 1000 MG tablet Indications:Type 2 diabetes mellitus with hyperglycemia, without long-term current use of insulin (HCC)TAKE 1 TABLET BY MOUTH IN THE MORNING AND 1 TABLET IN THE EVENING -- TAKE WITH MEALS 180 tablet 5Active Active Problems ProblemNoted DateDiagnosed DateMedicare annual wellness visit, subsequent 12/14/2024 Assessment & Plan (12/14/2024 12:08 PM EDT): Reviewed labs. Discussed proper diet and regular aerobic exercise. Need aerobic exercise 5-6 days aweek for 30 minutes at a time. Smaller portions and limit total calories. Tetanus every 10 years. Advised not to smoke. CKD stage 3b, GFR 30-44 ml/min12/14/20240534Idqsirwzvmmo44/13/2023Type 2 diabetes mellitus with hyperglycemia, without long-term current use of iiucgrq2206/24/2023 Assessment & Plan (06/13/2024 9:35 AM EST): [...] and limit carbs. Screening PSA (prostate specific antigen)06/24/2023Encounter for long-term (current) use of ajulairnhbr04/13/2023Right posterior capsular opacification 06/24/2023ry eyes06/24/2023 Resolved Problems ProblemNoted DateDiagnosed DateResolved DateClaudication, vtaprvjyiums26/13/2023 12/15/2023Type 2 diabetes mellitus without complication, without long-term current use of dfavttp18lepharitis of upper and lower eyelids of both eyes Encounters DateTypeDepartmentCare BqioVlngyjwrggn77/20/2025 9:40 AM ESTOffice Visit [facility] [address] [place] [address] Eric Donaldson, DPJose Tinea pedis, unspecified laterality (Primary Dx); Diabetes mellitus due to underlying condition with diabetic polyneuropathy, unspecified whether intermediate insulin use (HCC); Pain due to onychomycosis of toenails of both feet06/01/2025Travelfrom Last 3 Months Family History Medical HistoryRelationNameCommentsHypertensionMotherRelationNameStatusComments FatherDeceasedMotherDeceased Social History Tobacco UseTypesPacks/DayYears UsedDateSmoking Tobacco: [id number] - 1999Smokeless Tobacco: Never Tobacco Cessation:Counseling Given: Yes Alcohol UseStandard Drinks/WeekCommentsNever0 (1 standard drink = 0.6 oz pure alcohol)PHQ-2AnswerDate RecordedPatient Health Questionnaire-2 Ddyev898 Sex and Gender InformationValueDate RecordedSex Assigned at BirthNot on file Legal QdiPgmi32/07/2022 8:35 PM EDTGender IdentityNot on fileSexual Orientation Not on file Last Filed Vital Signs Vital SignReadingTime TakenCommentsBlood Dtvqbckv850/68012/14/2024 11:38 AM EDT Pbarz133512/14/2024 11:38 AM OISDemqymegaom91.3 ??C (97.3 ??F)12/14/2024 11:38 AM EDTRespiratory Wwqt581908/01/2024 9:32 AM ESTOxygen Htguxkgxgn90%12/14/2024 11:38 AM EDTInhaled Oxygen Concentration--Fymwbs05.2 kg (212 lb)06/01/2025 9:32 AM EST Mvxeox951.9 cm (6')06/01/2025 9:32 AM ESTBody Mass Index28.7506/01/2025 9:32 AM EST Plan of Treatment DateTypeDepartmentCare Team (Latest Contact Info)Tgsbehcftpn81/22/2025 2:00 PM ESTOffice Visit [facility] [address] [place] [id number] Jerod Salas, [address] [place] [address] 08/24/2025 9:10 AM ESTOffice Visit [facility] [address] [facility] [address] [place] [phone] Eric Donaldson, DPJose [address] [facility] [address] [place] [address] Health MaintenanceDue DateLast DoneCommentsDiabetes: Hemoglobin A1C12/30/2024 07/01/2024, 4Diabetes: Urine Protein Kfejcrmci92/20/27744509/01/2023, 3COVID-19 Vaccine ( season), 04/04/2024, 04/30/2023, Additional history existsMedicare Annual Wellness (AWV)12/14/2025 12/14/2024Diabetes: Retinopathy Jnzceykly95/20/44305409/01/2023, 07/01/2024, 07/01/2024, Additional history existsPneumococcal Vaccine: 65+ YearsCompleted 03/29/2018, 03/26/2016Influenza ZjogrzgKljekqrzq36/18/2025, 04/27/2024, 06/01/2023, Additional history exists Insurance Care Teams Team MemberRelationshipSpecialtyStart DateEnd Date Dante Calvin MD [address] [place] [phone] PCP - GeneralFamily Medicine12/15/23 Dante Calvin MD [address] [place] [phone] PCP - [facility]CO [facility]08/19/24
[2025-07-03 09:37] LABS: Hematocrit 45.5 % (42.0-54.0); Hemoglobin 15.1 g/dL (14.0-18.0); Immature Granulocytes Abs Auto 0.02 10^3/uL (0.00-0.03); Immature Granulocytes Pct Auto 0.4 % (0.0-0.5); Lymphocytes Absolute Auto 2.2 10^3/uL (1.2-3.8); Mean Corpuscular HGB Conc 33.2 g/dL (29.9-35.2); Mean Corpuscular Hemoglobin 31.2 pg (25.9-34.0); Mean Corpuscular Volume 94.0 fL (80.0-94.0); Platelet Count 178 10^3/uL (150-450); Red Blood Count 4.84 10^6/uL (4.70-6.10); White Blood Count 5.1 10^3/uL (4.0-11.0)
[2025-07-03 10:08] LABS: Microalbum Creatinine Ratio Ur 32.3 mg/g (0.0-29.9)
[2025-07-03 10:15] LABS: Alanine Aminotransferase 37 U/L (16-63); Albumin Globulin Ratio 1.0; Albumin Level 3.7 g/dL (3.4-5.0); Alkaline Phosphatase 90 U/L (46-116); Anion Gap 14.0; Aspartate Amino Transferase 27 U/L (15-37); Blood Urea Nitrogen 14.0 mg/dL (7.0-18.0); Calcium 9.2 mg/dL (8.5-10.1); Carbon Dioxide 31.9 mmol/L (21.0-32.0); Chloride 104 mmol/L (98-107); Cholesterol 107 mg/dL (<=200); Estimated GFR (African America >60 (>=60 mL/min/1.73m^2); Estimated GFR (Non-African Ame 50 (>=60 mL/min/1.73m^2); Globulin 3.8 g/dL; Glucose 221 mg/dL (74-106); HDL Cholesterol 46 mg/dL (40-60); Potassium 3.9 mmol/L (3.5-5.1); Sodium 146 mmol/L (136-145); Thyroid Stimulating Hormone 2.636 uIU/mL (0.358-3.740); Total Protein 7.5 g/dL (6.4-8.2); Triglycerides 116 mg/dL (<=150); VLDL CHOLESTEROL 23.2 mg/dL
== END 2025-07-03 08:49 | disposition home or self-care (01) ==
LOC: LAB 08:52
PROVIDERS: PCP Family Medicine; Visit Provider Family Medicine
DX: E78.5 Hyperlipidemia, unspecified (principal); E11.65 Type 2 diabetes mellitus with hyperglycemia; Z79.899 Other long term (current) drug therapy; R53.83 Other fatigue
CPT/HCPCS: 36415; 80053; 80061; 82043; 82570; 83036; 84443; 85025